=== PATIENT | female | born 1970 | race Caucasian/White ===

== ENCOUNTER 2020-07-26 16:34 | Outpatient (REF) | payer OTHER, SELFPAY | END 2020-07-26 16:35 | disposition home or self-care (01) | LOC: HO.LAB 16:34 | PROVIDERS: PCP Hospitalist; Visit Provider Internal Medicine | DX: Z20.828 Contact with and (suspected) exposure to other viral communicable diseases (principal) | CPT/HCPCS: C9803; U0003 ==

== ENCOUNTER 2020-08-29 07:44 | Outpatient (REF) | payer OTHER, SELFPAY | END 2020-08-29 07:45 | disposition home or self-care (01) | LOC: HO.LAB 07:44 | PROVIDERS: PCP Hospitalist; Visit Provider Internal Medicine | DX: Z20.828 Contact with and (suspected) exposure to other viral communicable diseases (principal) | CPT/HCPCS: C9803; U0003 ==

== ENCOUNTER 2023-03-01 14:24 | Outpatient (REF) | payer OTHER, SELFPAY ==
--- NOTE | ~2023-03-01 | MM_ITS ---
EXAMINATION: BONE DENSITOMETRY CLINICAL INDICATION: Wedge compression fracture of 1st lumbar vertebra, initial. COMPARISON: None (current study represents initial baseline exam). TECHNIQUE: Using a Timeful DXA System (software version: 13.1) manufactured by [employer], dual-energy x-ray absorptiometry was performed of the lumbar spine and left hip. The images are of good technical quality. Summary results are attached. FINDINGS: AP SPINE L1-L4: BMD 1.256 g/cm2, Z-score 0.6, T-score 0.6, normal. LEFT FEMUR, NECK: BMD 0.767 g/cm2, Z-score -1.5, T-score -2.0, osteopenia. LEFT FEMUR, TOTAL: BMD 0.898 g/cm2, Z-score -0.7, T-score -0.9, normal. IDENTIFIED RISK FACTORS: Early menopause, secondary osteoporosis, history of fracture (adult), low calcium intake. HISTORY OF FRACTURE: Spine. MEDICATIONS: Vitamin D. MM/XR DEXA axial skeleton IMPRESSION: 1. DIAGNOSIS: Osteopenia based on the lowest T-score value of -2.0 in the femoral neck applying World Health Organization criteria. 2. 10-YEAR FRACTURE RISK PREDICTION, FRAX: Major osteoporotic fracture (clinical spine, forearm, hip or shoulder) 9.7%. Hip fracture 1.4%. 3. Treatment Recommendations: NOF guidelines recommend consideration for treatment in postmenopausal women and men age 50 and older presenting with the following: -A hip or vertebral (clinical or morphometric) fracture. -T-score less than or equal to -2.5 at the femoral neck or spine after appropriate evaluation to exclude secondary causes. -Low bone mass at the hip or spine and a 10-year fracture probability by FRAX of greater than or equal to 3% for hip fracture or greater than or equal to 20% for major osteoporotic fracture based on the [place] adapted WHO algorithm. 4. Other Recommendations: All treatment decisions require clinical judgment and consideration of individual patient factors, including patient preferences, comorbidities, previous drug use, risk factors not captured in the FRAX model (e.g. frailty, falls, vitamin D deficiency, increased bone turnover, interval significant decline in bone density) and possible under or overestimation of fracture risk by FRAX. Additional medical evaluation for secondary cause of low bone mineral density may be appropriate. FUTURE SCAN RECOMMENDATION: People with diagnosed cases of osteoporosis or at high risk for fracture should have regular bone mineral density tests. For patients eligible for Medicare, routine testing is allowed once every 2 years. The testing frequency can be increased to one year for patients who have rapidly progressing disease, those who are receiving or discontinuing medical therapy to restore bone mass, or have additional risk factors.
== END 2023-03-01 14:25 | disposition home or self-care (01) ==
LOC: HO.MAMMO 14:24
PROVIDERS: PCP Hospitalist; Visit Provider Nurse Practitioner Family
DX: Z13.820 Encounter for screening for osteoporosis (principal); S32.010A Wedge compression fracture of first lumbar vertebra, initial encounter for closed fracture; Z78.0 Asymptomatic menopausal state
CPT/HCPCS: 77080

== ENCOUNTER 2023-04-11 08:09 | Outpatient (AMB) | payer OTHER, SELFPAY ==
--- NOTE | 2023-04-11 08:18 | AM.OFFWIN_ITS ---
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 Patient Tobacco Use Status: Former Tobacco user Allergies No Known Allergies Allergy (Verified 04/11/23 08:22) Do you need a note to return to daycare/school/sports/work: Yes HPI HPI Comments History of Present Illness Details The patient presents to urgent care for evaluation of migraine headache. She states this been going on for about 3 days. It feels similar to prior episodes of migraines however she noticed that she is developing a ringing in her years more so right greater than left. No other associated symptoms. No fever chills nausea vomiting no neck pain or stiffness. Patient has been using ibuprofen 600 mg intermittently. Also using Tylenol. [facility] History History of bilateral breast reduction surgery Hx of abdominoplasty Family History Father COPD (chronic obstructive pulmonary disease) Mother Diabetes Asthma Brother No problems noted. Son In good health Sister In good health Sister In good health Sister In good health Social History Housing: House Alcohol intake: never Patient Tobacco Use Status: Former Tobacco user e-Cigarette/Vaping Use: Never Used Second Hand Smoke Exposure: No service: No Current occupational status: employed Cognitive needs: No Hearing needs: No Vision needs: Yes (glasses) Review of Systems Const Denies increased appetite Card Denies radiating jaw, neck or arm pain and Denies dyspnea Resp Denies hemoptysis and Denies dyspnea Physical Exam Vital Signs: Last Vital Signs Temp 97.2 F 04/11/23 08:22 Pulse 70 04/11/23 08:22 BP 120/80 04/11/23 08:22 Pulse Ox 98 04/11/23 08:22 Oxygen Delivery Method Room Air 04/11/23 08:22 Const General: healthy appearing and no acute distress HEENT Head: Yes normal to inspection Ears: external ears normal and TM's normal bilaterally Mouth: Normal oral and palatal mucosa present Throat: Yes posterior oropharynx normal Eyes Sclerae: sclerae normal Corneas: corneas normal Pupils: Equal, round and reactive pupils present EOM: EOMs intact bilaterally Chest Chest palpation & inspection: normal inspection of the chest Resp Effort & Inspection: normal respiratory effort and able to speak in complete sentences Neuro Cranial nerves: Yes Equal, round and reactive pupils present Assessment & Plan Assessment & Plan (1) Migraine: Code(s): G43.909 - Migraine, unspecified, not intractable, without status migrainosus Plan Migraine headache. Patient reports that she has had benefit with ears in the past will prescribe this. Recommend Medications: New osqkakqfxv-ofsbyhpafrgvd-yjml 50-300-40 mg (Fioricet) 1 cap PO Q8H PRN 14 caps 0RF pain Coding Level of Care Code Est Pt Level 3 (59736) Diagnoses Migraine G43.909
[2023-04-11 08:22] VITALS: BP 120/80; PULSE 70; TEMP 36.2; O2SAT 98
== END 2023-04-11 09:14 | disposition home or self-care (01) ==
PROVIDERS: PCP Hospitalist; Visit Provider Emergency Medicine
DX: G43.909 Migraine, unspecified, not intractable, without status migrainosus (principal)
CPT/HCPCS: 99213

== ENCOUNTER 2023-06-07 13:54 | Outpatient (REF) | payer OTHER, SELFPAY ==
--- NOTE | ~2023-06-07 | MM_ITS ---
EXAMINATION: MM SCREENING DIGITAL BREAST TOMOSYNTHESIS, BILATERAL CLINICAL INFORMATION: Screening. Asymptomatic. The patient has had bilateral breast reduction. COMPARISON: Mammography: This study is compared with prior exams dating back to 2017. TECHNIQUE: Digital breast tomosynthesis is performed in both the craniocaudal and mediolateral oblique views along with computer-aided detection (CAD). Synthesized 2D images are generated from the tomosynthesis. FINDINGS: There are scattered areas of fibroglandular density (ACR BI-RADS breast composition Category b). There are no significant masses, abnormal calcifications, or other abnormalities. Post reduction changes are present. MM/MM tomosynthesis screening BI IMPRESSION: No mammographic evidence of malignancy. ASSESSMENT: BI-RADS BI-RADS 2 - Benign Findings RECOMMENDATION: Routine annual mammography screening. 1 year F/U This examination should not preclude the clinical evaluation of a suspicious palpable abnormality. This patient's information was entered into a reminder system with a target due date for their next mammogram.
== END 2023-06-07 13:55 | disposition home or self-care (01) ==
LOC: HO.MAMMO 13:54
PROVIDERS: PCP Hospitalist; Visit Provider Hospitalist
DX: Z12.31 Encounter for screening mammogram for malignant neoplasm of breast (principal)
CPT/HCPCS: 77063; 77067

== ENCOUNTER → 2023-06-07 14:00 | Outpatient (BNV) | payer OTHER, SELFPAY | PROVIDERS: PCP Hospitalist; Visit Provider Radiology Diagnostic Radiology | DX: Z12.31 Encounter for screening mammogram for malignant neoplasm of breast (principal) | CPT/HCPCS: 77063; 77067 ==

== ENCOUNTER 2023-07-16 08:20 | Outpatient (AMB) | payer OTHER, SELFPAY ==
--- NOTE | 2023-07-16 08:36 | MHC.OFFVIS ---
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 She is doing well with no concerns. Attempting to eat a healthy diet with calcium and vitamin D and stays active with exercise. Currently sexually active. Denies any vaginal dryness or irritation. No menses x 5 yrs. STI testing offered; she declines. Last pap smear; >5yrs. Last mammogram UTD. Cologard is UTD. Denies any family history of breast, ovarian or colon cancer. PFSH Medical History Migraine with aura Asthma Surgical History Hx of section Hx of abdominoplasty History of bilateral breast reduction surgery Family History Father COPD (chronic obstructive pulmonary disease) Mother Diabetes Asthma Brother No problems noted. Son In good health Sister In good health Sister In good health Sister In good health Social History Housing: House Alcohol intake: never Patient Tobacco Use Status: Former Tobacco user e-Cigarette/Vaping Use: Never Used Second Hand Smoke Exposure: No service: No Current occupational status: employed Sexually active: Yes Sexual orientation: Straight/Heterosexual Gender identity: Female Cognitive needs: No Hearing needs: No Vision needs: Yes (glasses) Female Reproductive History Menstrual Age of menopause: 47 Total pregnancies: 1 Full term: 1 Number of Living Children: 1 Date of Mammogram: 06/07/23 (Birad 2) Date of last Bone Density Screenin03/01/23 Review of Systems Const All systems reviewed & are unremarkable except as noted in HPI and below Reports as per HPI Eyes Reports no additional complaints ENT Reports no additional complaints Card Reports no additional complaints Resp Reports no additional complaints GI Reports as per HPI and Reports no additional complaints Reports as per HPI Musc Reports no additional complaints Skin/Breast Reports as per HPI Neuro Reports no additional complaints Psych Reports no additional complaints Endo Reports no additional complaints Jamison/Lymph Reports no additional complaints Aller/Immun Reports no additional complaints Physical Exam Vital Signs: Last Vital Signs BP 110/76 07/16/23 08:37 BMI result Body Mass Index 32.7 Const General: cooperative, healthy appearing, no acute distress, well developed and alert Orientation/consciousness: patient oriented x3 HEENT Head: Yes normal to inspection Eyes General: appearance normal, both eyes and all related structures Neck Neck: Yes normal visual inspection Thyroid: Thyroid normal Chest Other: bilateral breast reconstruction scarring Chest palpation & inspection: normal inspection of the chest and other (no puckering, dimpling, peau de orange, retraction, discharge, masses) Breast/axilla inspection: normal inspection of the breasts Breast/axilla palpation: normal palpation of the breasts Resp Effort & Inspection: normal respiratory effort GI Other: abdominoplasty scarring Inspection: Yes normal to inspection Palpation (GI): Soft to palpation Rectal Exam - Female: deferred General: Yes bladder normal to palpation External Female Exam: normal external appearance and normal appearance of the urethra Speculum Exam - Vagina: normal appearance of the vagina, normal palpation, normal vaginal discharge and vagina atrophic Speculum Exam - Cervix: normal appearance of the cervix, normal palpation and Other cervical findings present (atrophy, bled slight with pap) Bimanual exam- vagina & uterus: normal bimanual exam, normal palpation, uterine size normal, bladder normal to palpation, normal palpation and non-tender Bimanual Exam- Adnexa, other: no masses Skin General skin exam: no rashes or lesions noted Rashes: no rashes Neuro General: patient oriented x3 Cognition (Neuro): normal cognition Extrem General: Yes normal to inspection Psych Attitude: cooperative Thought process: Normal thought process present Assessment & Plan Assessment & Plan (1) Encounter for well woman exam with routine gynecological exam: Code(s): Z01.419 - Encounter for gynecological examination (general) (routine) without abnormal findings Plan: Discussed: Current recommendations for pap smears per ASCCP guidelines. Breast awareness, periodic self breast exams and yearly mammogram. Maintain a healthy lifestyle, well balanced diet including Calcium 1,200 mg and Vitamin D 600 IU daily, and routine exercise. Contact the office with any postmenopausal bleeding. Replens and lubricants if needed. Sign up for the patient portal if not already enrolled. All of her questions and concerns were addressed to the best of my ability. RTO in 1 year for annual air purifier servicer exam. Orders: Orders MM tomosynthesis screening BI Today Z12.31 - Encounter for screening mammogram for malignant neoplasm of breast Coding Level of Care Code New Pt Prev Care 40-64y(70905) Diagnoses Encounter for well woman exam with routine gynecological exam Z01.419
[2023-07-16 08:37] VITALS: BP 110/76; BMI 32.7
== END 2023-07-16 09:24 | disposition home or self-care (01) ==
PROVIDERS: PCP Hospitalist; Visit Provider Advanced Practice Midwife
DX: Z01.419 Encounter for gynecological examination (general) (routine) without abnormal findings (principal)
CPT/HCPCS: 99386

== ENCOUNTER 2023-07-16 08:20 | Outpatient (REF) | payer OTHER, SELFPAY ==
[2023-07-19 06:23] LABS: HPV mRNA E6/E7 rflx Not Detected (Not Detected)
== END 2023-07-16 08:21 | disposition home or self-care (01) ==
LOC: HO.LNP 08:20
PROVIDERS: PCP Hospitalist; Visit Provider Advanced Practice Midwife
DX: Z01.419 Encounter for gynecological examination (general) (routine) without abnormal findings (principal); Z11.51 Encounter for screening for human papillomavirus (HPV)
CPT/HCPCS: 87624; 88142

== ENCOUNTER 2023-08-02 12:55 | Outpatient (AMB) | payer OTHER, SELFPAY ==
--- NOTE | 2023-08-02 12:56 | A.OFFPC_ITS ---
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 Required: No Chief Service Observer: Not Required per policy Accompanied by: Self / Same As Patient Allergies No Known Allergies Allergy (Verified 08/02/23 13:11) Medication List - Last Reconciled 08/02/23 by HARRY Turner albuterol sulfate 90 mcg/actuation 1 puff inhalation QID PRN ofniwdprvq-bgntrvkaangut-xogr 50-300-40 mg (Fioricet) 1 cap PO Q8H PRN ibuprofen 600 mg PO Q8H 1 month triamcinolone acetonide 0.5% 1 appl topical DAILY Tobacco use date assessed: 08/02/23 Dental Screening Dental Screen Date: 08/02/23 Did you have a dental visit in the last 12 months?: Yes Did you have a dental problem in the last 6 months where you did not have access to dental care?: No Was dental information given to patient?: Patient has dentist HPI HPI Comments 2 History of Present Illness0 Details 52-year-old female past medical history significant for osteopenia, migraine an asthma. Patient presents today as a transfer care from [facility] for physical exam. Patient reports she has not required inhaler in some time she typically requires in the summer when it is humid. Patient denies any chest pain, palpitations, shortness of breath and syncope. Patient brought in work form for immunizations will order titers for MMR, varicella, hepatitis-B patient requesting to have a urine tox screen completed as requested by her work, T spot blood work ordered. Tdap current given in 2011. Patient declined flu shot. Once titers resulted paperwork will be completed and patient will be notified. Patient has corn on left 4th toe requesting to see podiatry for this, referral entered. eye exam: Up-to-date. Patient had Cologuard screening completed 1 month ago which was negative. Mammogram: May 2023, negative patient is status post fall suffered compression fracture,BMD completed showed Osteopenia February 2023. Patient continues on vitamin-D supplements. Vitamin-D level ordered. Obgyn: Patient currently following with Ciara Kaba for well-woman exam. [facility] Medical History (Updated 08/02/23 @ 13:14 by HARRY Turner) Impetigo Migraine with aura Asthma Surgical History Hx of section Hx of abdominoplasty History of bilateral breast reduction surgery Family History (Updated 08/02/23 @ 13:09 by HARRY Turner) Father COPD (chronic obstructive pulmonary disease) Mother Diabetes Asthma Brother Substance use disorder Cardiomyopathy Son In good health Sister In good health Sister In good health Sister In good health Social History (Updated 08/02/23 @ 13:10 by HARRY Turner) Housing: House Alcohol intake: never Patient Tobacco Use Status: Former Tobacco user Quit Date: 2000 e-Cigarette/Vaping Use: Never Used Second Hand Smoke Exposure: No service: No Current occupational status: employed Sexual orientation: Straight/Heterosexual Gender identity: Female Cognitive needs: No Hearing needs: No Vision needs: Yes (glasses) Questionnaire PHQ-9 Over the last 2 weeks, how often have you been bothered by any of the following problems? 1. Little interest or pleasure in doing things: not at all 2. Feeling down, depressed, or hopeless: not at all 3. Trouble falling or staying asleep, or sleeping too much: not at all 4. Feeling tired or having little energy: not at all 5. Poor appetite or overeating: not at all 6. Feeling bad about yourself - or that you are a failure or have let yourself or your family down: not at all 7. Trouble concentrating on things, such as reading the newspaper or watching television: not at all 8. Moving or speaking so slowly that other people could have noticed. Or the opposite - being so fidgety or restless that you have been moving around a lot more than usual: not at all 9. Thoughts that you would be better off or of hurting yourself in some way: not at all Total score: 0 Depression Screening Interpretation: Negative Depression Screening Done: Yes 83954 - PHQ-9 Billing: Yes Source: Developed by Drs. Rey Andrews, Lauren Hurd, Jonathon Romano and colleagues, with an educational katie from [employer]. Thrive Questionnaire Date Thrive assessed: 08/02/23 I am a: Patient What is your living situation today?: I have a steady place to live Within the past 12 months, did the food you bought not last and you didn't have the money to get more?: Never true Within the past 12 months, did you worry whether your food would run out before you got money to buy more?: Never true Do you have trouble paying for medicines?: No Do you have trouble getting transportation to medical appointments?: No Do you have trouble paying your heating and electricity bill?: No Do you have trouble taking care of your child, family member or friend?: No Do you have trouble with day-to-day activities such as bathing, preparing meals, shopping, managing finances, etc.?: No Are you currently unemployed and looking for a job?: No Are you interested in more education?: No Currently or been in a relationship where the following occur: no concerns reported AUDIT C Alcohol Use Questionnaire (AUDIT-C) 1. How often do you have a drink containing alcohol?: Never Total Score: 0 BRENNEN-7 AMB Questionnaire BRENNEN-7 Date BRENNEN - 7 assessed: 08/02/23 Feeling nervous, anxious, or on edge: 0 = Not at all Not being able to stop or control worryin = Not at all Worrying too much about different things: 0 = Not at all Trouble relaxin = Not at all Being so restless that it is hard to sit still: 0 = Not at all Becoming easily annoyed or irritable: 0 = Not at all Feeling afraid as if something awful might happen: 0 = Not at all Total BRENNEN-7 score (0-4 normal; 5-9 mild; 10-14 moderate; 15-21 severe): 0 Source: Developed by Drs. Rey Andrews, Jonathon Appiah and colleagues, with an educational katie from [employer]. BRENNEN-7 Assessment Billing BRENNEN-7 Assessment Tool: BRENNEN-7 Assessment 79432 Review of Systems Const Denies chills, Denies fatigue, Denies fever(s) and Denies poor appetite Eyes Denies no additional complaints ENT Reports Normal hearing present Card Denies chest pain, Denies syncope, Denies rapid heart rate and Denies dyspnea Resp Denies cough and Denies dyspnea GI Denies change in stool character, Denies constipation, Denies diarrhea, Denies nausea and Denies vomiting Denies urinary frequency, Denies dysuria and Denies urinary urgency Neuro Reports Normal hearing present, Denies confusion and Denies syncope Psych Denies confusion Endo Denies fatigue Physical exam (Primary Care) Vital Signs: Last Vital Signs Pulse 81 08/02/23 12:58 BP 114/68 08/02/23 12:58 Pulse Ox 98 08/02/23 12:58 Oxygen Delivery Method Room Air 08/02/23 12:58 BMI result Body Mass Index 33.2 Tobacco/Smoking Status: Tobacco use Status Tobacco use date assessed 08/02/23 08/02/23 13:04 Patient Tobacco Use Status Former Tobacco user 08/02/23 13:10 e-Cigarette/Vaping Use Never Used 08/02/23 13:10 PHQ-9: PHQ-9 Score PHQ-9: Total score 0 08/02/23 13:33 Depression Screening Interpretation: Negative Thrive Assessment: Date of Thrive Assessment Date Thrive assessed 08/02/23 08/02/23 13:04 Currently or been in a relationship where the following occur: no concerns reported Const General: No confusion Orientation/consciousness: No confusion HENMT Head: Yes normocephalic and Yes atraumatic Ears: external ears normal and TM's normal bilaterally General nose exam: Normal external nose present and Normal nasal mucous membranes and turbinates present Face and sinus: Yes normal facial exam and Yes sinuses nontender Mouth: moist mucous membranes Throat: Yes tonsils normal Eyes Conjunctivae: conjunctivae normal Sclerae: sclerae normal Pupils: Equal, round and reactive pupils present and Pupils normal by confrontation EOM: EOMs intact bilaterally Direct Ophthalmoscopy: normal light reflex Neck Neck: Yes no lymphadenopathy and Yes supple Thyroid: Thyroid normal Chest Chest palpation & inspection: normal inspection of the chest Resp Effort & Inspection: normal respiratory effort Auscultation: clear to auscultation bilaterally, no crackles, no rhonchi and no wheezes Cardio Rate: regular rate Rhythm: regular rhythm Peripheral pulses: radial pulses present and dorsalis pedis present GI Inspection: Yes normal to inspection Palpation (GI): Soft to palpation, nontender and No hepatosplenomegaly present Auscultation: normoactive bowel sounds Skin General skin exam: no rashes or lesions noted Neuro General: No confusion Cranial nerves: Yes Equal, round and reactive pupils present and Yes Normal hearing present Cognition (Neuro): normal cognition Gait exam (Neuro): Normal gait present Motor exam (neuro): 5/5 motor strength present throughout Deep tendon reflexes (DTR's): Right brachioradialis reflex intensity grade: 2+, Left brachioradialis reflex intensity grade: 2+, Right patellar reflex intensity grade: 2+ and Left patellar reflex intensity grade: 2+ Extrem General: No edema Ankle/foot/toe images: 2 1. [place] noted to medial side of 5th toe. Assessment and Plan Assessment & Plan (1) [place] of toe: Code(s): L84 - Corns and callosities Plan: Referral entered to podiatry as requested by patient. (2) Osteopenia: Code(s): M85.80 - Other specified disorders of bone density and structure, unspecified site Plan: Continue on vitamin-D supplements. Recommended follow-up on bone density screening in 2-3 years. (3) Well adult exam: Code(s): Z00.00 - Encounter for general adult medical examination without abnormal findings Plan: Follow-up in 1 year. Once titers completed will complete, patient employee health record for med patient will be notified. Plan Follow in 1 year or sooner if needed. Orders: Orders 2 Varicella IgG Antibody Today Z01.84 - Encounter for antibody response examination Comprehensive Ethel. Panel Fast Today Z13.1 - Encounter for screening for diabetes mellitus TSH reflex Free T4 Today Z13.29 - Encounter for screening for other suspected endocrine disorder Vitamin D 25-OH Total Today M85.80 - Other specified disorders of bone density and structure, unspecified site Drug Screen Urine Today Z02.83 - Encounter for blood-alcohol and blood-drug test T Spot TB Today Z01.84 - Encounter for antibody response examination Mumps Virus IgG Antibody Today Z01.84 - Encounter for antibody response examination Rubella IgG Antibody Today Z01.84 - Encounter for antibody response examination Rubeola IgG (Measles) Today Z01.84 - Encounter for antibody response examination Hepatitis B Surface Antibody Today Z01.84 - Encounter for antibody response examination Complete Blood Count Auto Diff Today Z13.0 - Encounter for screening for diseases of the blood and blood-forming organs and certain disorders involving the immune mechanism Lipid Panel Today Z13.220 - Encounter for screening for lipoid disorders Referrals 2 Podiatry Referral L84 - Corns and callosities Medications: Refilled 2 jnjnhhlepl-bbghbwmradcvf-bhdf 50-300-40 mg (Fioricet) 1 cap PO Q8H PRN 14 caps 0RF pain Coding Level of Care Code Est Pt Prev Care 40-64y(32474) Diagnoses [place] of toe L84 Osteopenia M85.80 Well adult exam Z00.00 Additional Codes BRENNEN-7 Assessment Billing - BRENNEN-7 Assessment Tool: BRENNEN-7 Assessment 25053 ([id number])
[2023-08-02 12:58] VITALS: BP 114/68; PULSE 81; O2SAT 98; BMI 33.2
== END 2023-08-02 13:29 | disposition home or self-care (01) ==
PROVIDERS: PCP Hospitalist; Visit Provider Nurse Practitioner Family
DX: L84 Corns and callosities (principal); M85.80 Other specified disorders of bone density and structure, unspecified site; Z00.00 Encounter for general adult medical examination without abnormal findings
CPT/HCPCS: 99396

== ENCOUNTER 2023-12-26 08:05 | Outpatient (AMB) | payer OTHER, SELFPAY ==
[2023-12-26 08:23] VITALS: BP 118/70; PULSE 97; TEMP 36.6; O2SAT 98; BMI 32.0
--- NOTE | 2023-12-26 08:23 | AM.OFFWIN_ITS ---
Intake Vital Signs 12/26/23 08:23 Height 5 ft 2 in Weight 175 lb BMI 32.0 BP 118/70 Blood Pressure Location Rt brachial Position Sitting Pulse 97 Pulse Source Pulse Oximeter Temp 97.9 F Temp Source Oral Pulse Oximetry (%) 98 Oxygen Delivery Method Room Air Intake Visit Reasons: EP sinus infection Intake Note: pt is here for co possible sinus infection with congestion gooing on for 2 weeks Patient Tobacco Use Status: Former Tobacco user Quit Date: 2000 Allergies No Known Allergies Allergy (Verified 12/26/23 08:23) Do you need a note to return to daycare/school/sports/work: Yes HPI EP sinus infection HPI Details This is a 53 year old female patient who presents today for a 2+ week history of upper respiratory congestion, dry cough, sinus/facial pressure. Denies fever or GI symptoms. She has been using otc Dayquil/Nyquil and other cold/flu products without benefit. Motrin helps somewhat for the head pressure. [facility] Medical History Impetigo Migraine with aura Asthma Surgical History Hx of section Hx of abdominoplasty History of bilateral breast reduction surgery Family History Father COPD (chronic obstructive pulmonary disease) Mother Diabetes Asthma Brother Substance use disorder Cardiomyopathy Son In good health Sister In good health Sister In good health Sister In good health Social History Housing: House Alcohol intake: never Patient Tobacco Use Status: Former Tobacco user Quit Date: 2000 e-Cigarette/Vaping Use: Never Used Second Hand Smoke Exposure: No service: No Current occupational status: employed Sexual orientation: Straight/Heterosexual Gender identity: Female Cognitive needs: No Hearing needs: No Vision needs: Yes (glasses) Review of Systems Const All systems reviewed & are unremarkable except as noted in HPI and below Physical Exam Vital Signs: Last Vital Signs Temp 97.9 F 12/26/23 08:23 Pulse 97 12/26/23 08:23 BP 118/70 12/26/23 08:23 Pulse Ox 98 12/26/23 08:23 Oxygen Delivery Method Room Air 12/26/23 08:23 BMI result Body Mass Index 32.0 Const General: cooperative and no acute distress HEENT Head: Yes normal to inspection Ears: hearing grossly normal bilaterally General nose exam: Normal external nose present Face and sinus: Yes sinus tenderness Mouth: Normal oral and palatal mucosa present Throat: Yes posterior oropharynx abnormal (mild erythema) Neck Neck: Yes no lymphadenopathy Resp Effort & Inspection: normal respiratory effort Auscultation: clear to auscultation bilaterally Cardio Rate: regular rate Rhythm: regular rhythm Skin General skin exam: no rashes or lesions noted Extrem General: Yes capillary refill normal and Yes no clubbing, cyanosis or edema Psych Appearance: grossly normal Mental Status: mental status grossly normal Speech and movement: Normal speech and movement present Assessment & Plan Assessment & Plan (1) Upper respiratory infection: Code(s): J06.9 - Acute upper respiratory infection, unspecified Qualifiers: URI type: unspecified URI Qualified Code(s): J06.9 - Acute upper respiratory infection, unspecified Plan: Will start on abx as 2+ week otc treatment has not provided any benefit. Reviewed indications, use, possible s/e of medication. Advised to continue conservative measures with hydration, healthy food/vitamin intake, otc cold/flu products as needed for symptom management. If she does not improve with treatment she can return to the clinic for further evaluation. She agrees to plan. Medications: New azithromycin For 250 mg dose pack: take 500 mg today (day 1), then 250 mg for 4 days (days 2-5) PO 6 tabs 0RF J06.9 - Acute upper respiratory infection, unspecified Coding Level of Care Code Est Pt Level 4 (56264) Diagnoses Upper respiratory tract infection, unspecified type J06.9 URI type: unspecified URI
== END 2023-12-26 08:52 | disposition home or self-care (01) ==
PROVIDERS: PCP Hospitalist; Visit Provider Nurse Practitioner Family
DX: J06.9 Acute upper respiratory infection, unspecified (principal)
CPT/HCPCS: 99214

== ENCOUNTER 2024-03-27 06:28 | Outpatient (REF) | payer OTHER, SELFPAY ==
[2024-03-27 07:12] LABS: Estimated Average Glucose 123 mg/dL; Hemoglobin A1c % 5.9 % (<6.0)
[2024-03-27 07:30] LABS: Alanine Aminotransferase 18 U/L (0-31); Albumin Level 4.3 g/dL (3.5-5.0); Alkaline Phosphatase 77 U/L (39-117); Anion Gap 10 (12-20); Aspartate Amino Transferase 16 U/L (5-31); Bilirubin Total 0.5 mg/dL (0.0-1.0); Blood Urea Nitrogen 22 mg/dL (9-16); Calcium 10.2 mg/dL (8.4-10.2); Carbon Dioxide 30 mmol/L (22-29); Chloride 104 mmol/L (96-108); Cholesterol 231 mg/dL (<200); Estimated Glomerular Filt Rate > 60; Glucose Fasting 118 mg/dL (60-99); HDL Cholesterol 64 mg/dL (>40); LDL Cholesterol Calculated 149 mg/dL (<100); Potassium 4.4 mmol/L (3.3-5.1); Sodium 140 mmol/L (135-145); Total Protein 7.5 g/dL (6.5-8.0); Triglycerides 90 mg/dL (<150)
[2024-03-27 07:46] LABS: TSH reflex Free T4 2.34 uIU/mL (0.32-4.0)
[2024-03-27 08:23] LABS: Creatinine Urine 55.84 mg/dL; Microalbumin Urine < 5.0 mg/L
== END 2024-03-27 06:29 | disposition home or self-care (01) ==
LOC: HO.LAB 06:28
PROVIDERS: PCP Nurse Practitioner Family; Visit Provider Nurse Practitioner Family
DX: Z00.00 Encounter for general adult medical examination without abnormal findings (principal); Z13.6 Encounter for screening for cardiovascular disorders; Z13.1 Encounter for screening for diabetes mellitus
CPT/HCPCS: 36415; 80053; 80061; 82043; 82570; 83036; 84443

== ENCOUNTER 2024-04-09 07:57 | Outpatient (AMB) | payer OTHER, SELFPAY ==
--- NOTE | 2024-04-09 08:00 | MHC.PC.OV ---
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 Surveillance Investigator Required: No Is last menstrual period known: No Post menopausal: No Patient : No Allergies No Known Allergies Allergy (Verified 04/09/24 08:17) Medication List - Last Reconciled 04/09/24 by Anika Flores, COUPON REDEMPTION CLERK-BC albuterol sulfate 90 mcg/actuation 1 puff inhalation QID PRN arbfxaccky-inhihkouoixml-gtlr 50-300-40 mg (Fioricet) 1 cap PO Q8H PRN ibuprofen 600 mg PO Q8H 1 month triamcinolone acetonide 0.5% 1 appl topical DAILY Tobacco use date assessed: 04/09/24 Dental Screening Dental Screen Date: 04/09/24 Did you have a dental visit in the last 12 months?: Yes Did you have a dental problem in the last 6 months where you did not have access to dental care?: No Was dental information given to patient?: Patient has dentist HPI HPI Comments History of Present Illness Details 53-year-old female with osteopenia, migraine, asthma, compression fracture L1 vertebrae, impaired fasting glucose, hyperlipidemia, obesity Status post , abdominoplasty, bilat breast reduction surgery Social: , 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 Colon Cologuard 07/05/2023 negative ? Mammo May 2023 ? DEXA 03/05/2023, repeat 2024 ? PAP 07/16/2023 ? Tdap 2011, will update today Specialists: Podiatry - cleared plastic finisher Dermatology > no longer active Optho - glasses, exam about 1 year ago. Here today to est care & for CPE Old medical records reviewed Right elbow tendonitis, did acupuncture + relief however it is not fully resolved. Wonders about cortisone shot. Right handed. Eczema - on hands and AC, not active w/ Derm. Well managed with topical triamcinolone, using sparingly. Migraines + aura, also gets headaches as well. Abortive with Fiorecet using sparingly. Only has these migraines about 2 times per year, lasts a few days. Not active with Neuro. Asthma - well controlled w/ prn GEOVANNY only. Using prophylactically, like before exercise and when humid. Uses a few times per week as such. Very rare breathing feels hindered. Compression fracture resolved w PT and rest, was active w/ Ortho, no further fu indicated for this. Osteopenia - taking Ca+D and bone supplement OTC Hard time falling asleep, feels high strung. Occasional APAP PM. + Sleep hygeine. Melatonin keeps her awake. Getting around 7 hours. Never wakes feel. Reviewed the following today: Labs from 03/27/2024 show normal electrolytes, normal renal function, elevated fasting glucose 118, hemoglobin A1c 5.9%, normal LFTs, elevated total cholesterol 231, LDL 149, HDL 64, triglycerides 90, TSH normal, urine microalbumin creatinine ratio normal General: Well developed, well nourished, in no acute distress. Appears stated age. Head: Normocephalic, atraumatic. Eyes: Pupils are equal, round and reactive to light and accommodation. Conjunctivae are clear. Vision grossly normal. Ears: TMs clear AU, EACS WNL Nose: Patent, without discharge. Mouth: There are no ulcers or lesions noted. No inflammation, no post nasal drip, no plaques nor exudates. Neck: Supple, no adenopathy or thyromegaly. Lungs: Clear to auscultation bilaterally. No rales, rhonchi or wheeze noted. Good air flow in all nash. Heart: Regular rate and rhythm. No murmurs, click, rubs or gallops are noted. Abdomen: Bowel sounds present in all quadrants. The abdomen is soft, nontender, with no masses or organomegaly noted. No hernias are noted. Musculoskeletal: Joints are nontender, without swelling, redness, or effusions. Range of motion is observed to be normal. Pain w palp and ROM over lateral epicondyle on R Pulses: Peripheral pulses are equal and palpable bilaterally. Extremities: No clubbing, cyanosis nor edema is noted. Neurologic: Gait and station normal. Cranial Nerves 2-12 intact. Motor strength grossly symmetrical and intact. No sensory loss. Balance normal. Skin: No rashes, ulcers, or lesions noted. Turgor is good. Skin color is good. Hair and nails are without abnormalities. Psych: Normal eye contact, affect and mood appropriate, and normal interactions. Patient is alert and appropriate to context. Plan: Tdap today Refill of all meds; cont w/o change Refer to [facility] ortho for R elbow tendonitis Lifestyle for IFG and Lipids, repeat labs in 6 months with an office visit. Discussed sleep study today, let me know if interested, this is to eval waking feeling tired. RTO sooner if needed. [facility] Medical History (Updated 04/09/24 @ 10:04 by HARRY Vieira-) Skin lesion Achilles tendinitis of right lower extremity [place] of toe Impetigo Migraine with aura Asthma Surgical History Hx of section Hx of abdominoplasty History of bilateral breast reduction surgery Family History (Updated 04/09/24 @ 08:06 by Noy Barth) Father COPD (chronic obstructive pulmonary disease) Alcohol abuse Mother Diabetes Asthma Brother Substance use disorder Cardiomyopathy Alcohol abuse Son In good health Sister In good health Sister In good health Sister In good health Social History Housing: House Alcohol intake: never Patient Tobacco Use Status: Former Tobacco user e-Cigarette/Vaping Use: Never Used Second Hand Smoke Exposure: No service: No Current occupational status: employed Current occupational exposures/hazards: No Sexual orientation: Straight/Heterosexual Gender identity: Female Cognitive needs: No Hearing needs: No Vision needs: Yes (glasses) Questionnaire PHQ-9 Over the last 2 weeks, how often have you been bothered by any of the following problems? 1. Little interest or pleasure in doing things: not at all 2. Feeling down, depressed, or hopeless: not at all 3. Trouble falling or staying asleep, or sleeping too much: several days 4. Feeling tired or having little energy: not at all 5. Poor appetite or overeating: not at all 6. Feeling bad about yourself - or that you are a failure or have let yourself or your family down: not at all 7. Trouble concentrating on things, such as reading the newspaper or watching television: not at all 8. Moving or speaking so slowly that other people could have noticed. Or the opposite - being so fidgety or restless that you have been moving around a lot more than usual: not at all 9. Thoughts that you would be better off or of hurting yourself in some way: not at all Total score: 1 Depression Screening Interpretation: Negative Depression Screening Done: Yes 45202 - PHQ-9 Billing: Yes Source: Developed by Drs. Rey Andrews, Lauren Hurd, Jonathon Romano and colleagues, with an educational katie from [employer]. Thrive Questionnaire Date Thrive assessed: 08/02/23 AUDIT C Alcohol Use Questionnaire (AUDIT-C) 1. How often do you have a drink containing alcohol?: Monthly or less (once a year) 2. How many drinks containing alcohol do you have on a typical day when you are drinking?: 1 or 2 3. How often do you have six or more drinks on one occasion?: Never Total Score: 1 Score Reviewed/Action Taken: Yes BRENNEN-7 AMB Questionnaire BRENNEN-7 Date BRENNEN - 7 assessed: 04/09/24 Feeling nervous, anxious, or on edge: 1 = Several days Not being able to stop or control worryin = Not at all Worrying too much about different things: 0 = Not at all Trouble relaxin = Several days Being so restless that it is hard to sit still: 0 = Not at all Becoming easily annoyed or irritable: 0 = Not at all Feeling afraid as if something awful might happen: 0 = Not at all Total BRENNEN-7 score (0-4 normal; 5-9 mild; 10-14 moderate; 15-21 severe): 2 Source: Developed by Drs. Rey Andrews, Lauren Hurd, Jonathon Romano and colleagues, with an educational katie from [employer]. BRENNEN-7 Assessment Billing BRENNEN-7 Assessment Tool: BRENNEN-7 Assessment 59159 ACT Questionnaire In the past 4 weeks, how much of the time did your asthma keep you from getting as much done at work, school or at home?: All of the time During the past 4 weeks, how often have you had shortness of breath?: 1-2 times a week During the past 4 weeks, how often did your asthma symptoms wake you up at night or earlier than usual in the morning?: Not at all During the past 4 weeks, how often have you had to use your rescue inhaler or nebulizer medication?: 2-3 times a week How would you rate your asthma control during the past 4 weeks?: Completely controlled ACT Interpretation: Negative Score: 18 Physical exam (Primary Care) Vital Signs: Last Vital Signs Temp 98.1 F 04/09/24 08:10 Pulse 86 04/09/24 08:10 Resp 16 04/09/24 08:10 BP 108/74 04/09/24 08:10 Pulse Ox 96 04/09/24 08:10 Oxygen Delivery Method Room Air 04/09/24 08:10 BMI result Body Mass Index 35.0 BMI Assessment/Plan discussion: High BMI High, discussed plan: lifestyle Tobacco/Smoking Status: Tobacco use Status Tobacco use date assessed 04/09/24 04/09/24 08:13 Patient Tobacco Use Status Former Tobacco user 04/09/24 08:00 e-Cigarette/Vaping Use Never Used 04/09/24 08:00 PHQ-9: PHQ-9 Score PHQ-9: Total score 1 04/09/24 09:00 Depression Screening Interpretation: Negative Thrive Assessment: Date of Thrive Assessment Date Thrive assessed 08/02/23 04/09/24 08:00 Immunizations Boostrix Tdap 2.5 Lf unit-8 mcg-5 Lf/0.5 mL intramuscular syringe Performing Provider: SONJA Vieira Performing Location: [facility] Family Medicine Administered by: Diane Dunham RN on 04/09/24 09:02 Dose Route Admin Location Dispensed Lot Number Expiration Date NDC Early Morning 0.5 mL IM Left Deltoid 0.5 mL [id number] 04/24/26 [id number] Sealed VIS Given Date VIS Provided VIS Publication Date 04/09/24 Single Vaccine 21 Eligibility Eligibility Date Funding Source Not [facility] Eligible 04/09/24 Private Assessment and Plan Assessment & Plan (1) Encounter for general adult medical examination without abnormal findings: Code(s): Z00.00 - Encounter for general adult medical examination without abnormal findings (2) Severe obesity (BMI 35.0-35.9 with comorbidity): Comment: HLD and IFG Code(s): E66.01 - Morbid (severe) obesity due to excess calories; Z68.35 - Body mass index [BMI] 35.0-35.9, adult (3) Right elbow tendonitis: Code(s): M77.8 - Other enthesopathies, not elsewhere classified (4) IFG (impaired fasting glucose): Code(s): R73.01 - Impaired fasting glucose (5) Hyperlipidemia: Code(s): E78.5 - Hyperlipidemia, unspecified Qualifiers: Hyperlipidemia type: mixed hyperlipidemia Qualified Code(s): E78.2 - Mixed hyperlipidemia (6) Mild intermittent asthma in adult without complication: Code(s): J45.20 - Mild intermittent asthma, uncomplicated (7) Migraine with aura: Code(s): G43.109 - Migraine with aura, not intractable, without status migrainosus Qualifiers: Status migrainosus presence: without status migrainosus Intractability: not intractable Qualified Code(s): G43.109 - Migraine with aura, not intractable, without status migrainosus (8) Osteopenia: Code(s): M85.80 - Other specified disorders of bone density and structure, unspecified site Qualifiers: Osteopenia location: unspecified Qualified Code(s): M85.80 - Other specified disorders of bone density and structure, unspecified site (9) Compression fracture of L1 lumbar vertebra: Comment: resolved Code(s): S32.010A - Wedge compression fracture of first lumbar vertebra, initial encounter for closed fracture Qualifiers: Encounter type: sequela Qualified Code(s): S32.010S - Wedge compression fracture of first lumbar vertebra, sequela Orders: Orders Lipid Panel 08/16/24 E78.5 - Hyperlipidemia, unspecified, R73.01 - Impaired fasting glucose Hemoglobin A1c 08/16/24 E78.5 - Hyperlipidemia, unspecified, R73.01 - Impaired fasting glucose TDaP Immunization Today Z23 - Encounter for immunization Comprehensive [place]. Panel Fast 08/16/24 E78.5 - Hyperlipidemia, unspecified, R73.01 - Impaired fasting glucose Referrals Orthopedics Referral M77.8 - Other enthesopathies, not elsewhere classified Medications: Refilled triamcinolone acetonide 0.5% 1 appl topical DAILY 15 grams 3RF absanqmkrh-xdocucnpywjve-buqs 50-300-40 mg (Fioricet) 1 cap PO Q8H PRN 14 caps 0RF pain Discontinued ibuprofen Discontinued Reason: Patient Completed Course 600 mg PO Q8H 1 month 90 tabs 0RF pain M76.61 - Achilles tendinitis, right leg Patient Instructions: Health screenings for women You should visit your health care provider from time to time, even if you are healthy. The purpose of these visits is to: Screen for medical issues Assess your risk for future medical problems Encourage a healthy lifestyle Update vaccinations and other preventive care services Help you get to know your provider in case of an illness Information Even if you feel fine, you should still see your provider for regular checkups. These visits can help you avoid problems in the future. For example, the only way to find out if you have high blood pressure is to have it checked regularly. High blood sugar and high cholesterol levels also may not have any symptoms in the early stages. A simple blood test can check for these conditions. There are specific times when you should see your provider or receive specific health screenings. The [place] Preventive Services Task Force publishes a list of recommended screenings. Below are screening guidelines for women ages 18 to 39. BLOOD PRESSURE SCREENING Your blood pressure should be checked at least once every 3 to 5 years if: Your blood pressure is in the normal range (top number less than 120 mm Hg and bottom number less than 80 mm Hg) You don't have risk factors for high blood pressure Ask your provider if you need your blood pressure checked more often if: The top number is 120 to 129 mm Hg or the bottom number is 70 to 79 mm Hg You have diabetes, heart disease, kidney problems, are overweight, or have certain other health conditions You have a first-degree relative with high blood pressure You are Black You had high blood pressure during a If the top number is 130 mm Hg or greater or the bottom number is 80 mm Hg or greater, this is considered stage 1 hypertension. Schedule an appointment with your provider to learn how you can reduce your blood pressure. Watch for blood pressure screenings in your area. Ask your provider if you can stop in to have your blood pressure checked. BREAST CANCER SCREENING Experts do not agree about the benefits of breast self-exams in finding breast cancer or saving lives. Talk to your provider about what is best for you. A screening mammogram is not recommended for most women under age 40. Your provider may discuss and recommend mammograms, MRI scans, or ultrasounds if you have an increased risk for breast cancer, such as: A mother or sister who had breast cancer at a young age (most often starting screening earlier than the age the close relative was diagnosed) You carry a high-risk genetic marker CERVICAL CANCER SCREENING Cervical cancer screening should start at age 21 years unless your provider advises otherwise. After the first test: Women ages 21 through 29 should have a Pap test every 3 years. Exoprts do not agree on whether HPV testing is recommended for this age group. Women ages 30 through 65 should be screened with either a Pap test every 3 years or the HPV test every 5 years or both tests every 5 years (called cotesting ). Women who have been treated for precancer (cervical dysplasia) should continue to have Pap tests for 20 years after treatment or until age 65, whichever is longer. If you have had your uterus and cervix removed (total hysterectomy), and you have not been diagnosed with cervical cancer or precancer (high grade cervical neoplasia), you do not need cervical cancer screening. CHOLESTEROL SCREENING Cholesterol screening should begin at: Age 45 for women with no known risk factors for coronary heart disease Age 20 for women with known risk factors for coronary heart disease Repeat cholesterol screening should take place: Every 5 years for women with normal cholesterol levels More often if changes occur in lifestyle (including weight gain and diet) More often if you have diabetes, heart disease, kidney problems, or certain other conditions DIABETES SCREENING You should be screened for diabetes starting at age 35 and then repeated every 3 years if you have no risk factors for diabetes. Screening may need to start earlier and be repeated more often if you have other risk factors for diabetes, such as: You have a first degree relative with diabetes. You are overweight or have obesity. You have high blood pressure, prediabetes, or a history of heart disease. Screening for diabetes should be done if you are planning to become and you are overweight and have other risk factors such as high blood pressure. DENTAL EXAM Go to the dentist once or twice every year for an exam and cleaning. Your dentist will evaluate if you need more frequent visits. EYE EXAM Have an eye exam every 5 to 10 years before age 40. If you have vision problems, have an eye exam every 2 years or more often if recommended by your provider. You should have an eye exam that includes an examination of your retina (back of your eye) at least every year if you have diabetes. IMMUNIZATIONS Commonly needed vaccines include: Flu shot: get one every year. COVID-19 vaccine: ask your provider what is best for you. Tetanus-diphtheria and acellular pertussis (Tdap) vaccine: have one at or after age 19 as one of your tetanus-diphtheria vaccines if you did not receive it as an adolescent. Tetanus-diphtheria: have a booster (or Tdap) every 10 years. Varicella vaccine: receive 2 doses if you never had chickenpox or the varicella vaccine. Hepatitis B vaccine: receive 2, 3, or 4 doses, depending on your exact circumstances. Measles, mumps, and rubella (MMR) vaccine: receive 1 to 2 doses if you are not already immune to MMR. Your provider can tell you if you are immune. Ask your provider about the human papillomavirus (HPV) vaccine if: You have not received the HPV vaccine in the past You have not completed the full vaccine series (you should catch up on this shot) Ask your provider if you should receive other immunizations if you have certain health problems that increase your risk for some diseases such as pneumonia. INFECTIOUS DISEASE SCREENING Women who are sexually active should be screened for chlamydia and gonorrhea up until age 25. Women 25 years and older should be screened for chlamydia and gonorrhea if at high risk. Screening for hepatitis C: All adults ages 18 to 79 should get a one-time test for hepatitis C. people should be screened at every . Screening for human immunodeficiency virus (HIV): All people ages 15 to 65 should get a one-time test for HIV. Depending on your lifestyle and medical history, you may also need to be screened for infections such as syphilis and HIV, as well as other infections. PHYSICAL EXAM All adults should visit their provider from time to time, even if they are healthy. The purpose of these visits is to: Screen for disease Assess your risk of future medical problems Encourage a healthy lifestyle Update your vaccinations and other preventive care services Maintain a relationship with a provider in case of an illness Your height, weight, and BMI should be checked at every exam. During your exam, your provider may ask you about: Depression and anxiety Diet and exercise Alcohol and tobacco use Safety issues, such as using seat belts, smoke detectors, and intimate partner violence Your medicines and risk for interactions SKIN SELF-EXAM Your provider may check your skin for signs of skin cancer, especially if you're at high risk, such as if you: Have had skin cancer before Have close relatives with skin cancer Have a weakened immune system OTHER SCREENING Talk with your provider about colon cancer screening if you have a strong family history of colon cancer or polyps, or if you have had inflammatory bowel disease or polyps yourself. Routine bone density screening of women under 40 is not recommended. Walk-In Care (Urgent Care): We Make it Easy Walk-in for urgent medical issues such as: ? Seasonal Allergies ? Insect Bites ? Cough ? Diarrhea ? Acute Asthma Attacks ? Back, Knee or Joint Pain ? Ear Infection ? Fever without a Rash ? Headaches ? Nausea ? [place] Eye, Rash or Skin Irritation ? Sore Throat ? Sports Physicals ? Vomiting Most insurances are accepted. Patients do not need to be part of the [facility] to seek care at the walk-in clinic. Locations [facility] , [place] [address] ? [phone] [facility] Walk-In Care in [place] provides services to ages 18 and over. Open Saturday-Saturday: 8 a.m. to 5 p.m. and Saturday: 9 a.m. to 3 p.m.* *Hours may vary due to staffing availability. To confirm Walk-In Care hours in [place], please call [phone]. [address] [place] [address] ? [phone] [facility] Walk-In Care in [place] provides services to ages 12 and over. Open Saturday-Saturday: 8 a.m. to 5 p.m. Hours may vary due to staffing availability. To confirm Walk-In Care hours in [place], please call [phone]. LABORATORY SERVICES: [facility] Lab ? Primary Location [address] [place] [address] Saturday through Saturday 6:00 AM ? 5:00 PM Saturday 7:00 AM ? 11:00 AM* [phone] The [facility] Lab is centrally located near the front entrance of the Medical Center for easy outpatient access. Convenient parking is provided for outpatients. *Hours may vary due to staffing availability. To confirm Laboratory hours for any location, please call [phone]. Offsite Location For your convenience, we offer offsite laboratory draw stations at the following locations: [address] [place] [address] [address], [address], [place] Saturday through Saturday 7:30 AM ? 1:00 PM* [phone] *Hours may vary due to staffing availability. To confirm Laboratory hours for any location, please call [phone]. [place] ? [facility] [address] [facility] [place] Saturday through Saturday 6:00 AM ? 3:30 PM* Saturday 6:30 AM ? 3 PM* [phone] *Hours may vary due to staffing availability. To confirm Laboratory hours for any location, please call [phone] [place] [address] Saturday through Saturday 7:30 AM ? 4:00 PM* [phone] *Hours may vary due to staffing availability. To confirm Laboratory hours for any location, please call [phone] [place] [address] Saturday through 9:00 AM ? 4:00 PM* *Hours may vary due to staffing availability. To confirm Laboratory hours for any location, please call [phone]. Appointments are not necessary. Walk-ins are welcome. Like all the departments throughout the [facility], our Lab undergoes frequent reviews to ensure the quality and accuracy of test results, and our staff takes special pride in its status as a nationally accredited facility. Patient Portal: ONE PATIENT. ONE RECORD. BETTER CARE. [facility] has a fully integrated, cutting-edge mobile electronic health information system that has revolutionized the way we care for our patients and manage our organization. This system improves communication and coordination enabling us to provide safe, higher-quality care, and an overall positive experience for staff and patients. Our first priority, as always, is to deliver the highest quality care possible. The system is running in the background supporting that priority. This portal is for all [facility] [place] services and practices. If you are experiencing any technical difficulties with enrolling or logging into the Patient Portal please complete the [facility] Patient Portal Technical Support Form. [facility] now offers a new secure on-line interactive tool for patients to review their health information ? ?Patient Portal. This interactive web portal will enable patients and their families to take an active role in their care by providing easy, secure access to their health information via the internet. The Patient Portal provides patients with instant access to their health information, including laboratory results, medications, allergies, demographic information, visit history, and more. In addition to managing their own care, parents and health care proxies with authorized consent will appreciate the ability to access the records of those individuals for whom they provide care. Please note: if you wish to gain access (Proxy) to another patient?s portal, you will be required to come to the Medical Records Department in person at [facility]. Both the patient giving proxy access and the proxy will need to provide photo identification and complete the appropriate authorization. The Patient Portal also allows track their appointments online. The [facility] Patient Portal also saves patients time by allowing them to submit updates to their demographic and contact information prior to their visits. Portal email notifications will also alert patients to any new activity on their portal, such as test results and new appointments. In order to initially enroll in the [facility] Patient Portal, you will need to enter some required information including the following: your [facility] Medical Record number your personal home email address name date of Please note: In order to enroll in the [facility] Patient Portal, we need to have your email address on file in your electronic medical record. ?The email address needs to be specific for one person (yourself) in order for your Portal enrollment to be successful. ?You can update your email address in person with our Registration staff when you are registering for a hospital visit. ?Otherwise, you will need to come to the Health Information Management (Medical Records) Department at [facility]. ?We are open from Saturday ? Saturday from 7:30 a.m. ? 4:30 p.m. ?You will be required to present a photo id. Once you have successfully enrolled in the Patient Portal, you will receive a one-time user id and password for the Portal, sent to your email address. ?This will allow you to log into the Patient Portal within 99 hrs and reset your own logon id and password, and define personal security questions. ?Once your permanent login and password have been set, you can log into the [facility] Patient Portal at any time via the blue button above or from the Portal Logon button on any page of the [facility] website. [facility] and [facility] encourage all of our patients to enroll in Patient Portal as it presents a valuable opportunity for patients and their families to actively participate in their care and stay healthy Welcome to [facility]. ?We look forward to working with you. Review Flu Vaccine not done: patient reason Coding Level of Care Code Est Pt Prev Care 40-64y(40892) Diagnoses Encounter for general adult medical examination without abnormal findings Z00.00 Severe obesity (BMI 35.0-35.9 with comorbidity) E66.01; Z68.35 Right elbow tendonitis M77.8 IFG (impaired fasting glucose) R73.01 Mixed hyperlipidemia E78.2 Hyperlipidemia type: mixed hyperlipidemia Mild intermittent asthma in adult without complication J45.20 Migraine with aura and without status migrainosus, not intractable G43.109 Status migrainosus presence: without status migrainosus Intractability: not intractable Osteopenia, unspecified location M85.80 Osteopenia location: unspecified Compression fracture of L1 vertebra, sequela S32.010S Encounter type: sequela Additional Codes BRENNEN-7 Assessment Billing - BRENNEN-7 Assessment Tool: BRENNEN-7 Assessment [id number] ([id number])
[2024-04-09 08:10] VITALS: BP 108/74; PULSE 86; RESP 16; TEMP 36.7; O2SAT 96; BMI 35.0
== END 2024-04-09 09:01 | disposition home or self-care (01) ==
PROVIDERS: PCP Nurse Practitioner Family; Visit Provider Nurse Practitioner Family
DX: Z00.00 Encounter for general adult medical examination without abnormal findings (principal); E66.01 Morbid (severe) obesity due to excess calories; Z68.35 Body mass index [BMI] 35.0-35.9, adult; Z23 Encounter for immunization; M77.8 Other enthesopathies, not elsewhere classified; R73.01 Impaired fasting glucose; E78.2 Mixed hyperlipidemia; J45.20 Mild intermittent asthma, uncomplicated; G43.109 Migraine with aura, not intractable, without status migrainosus; M85.80 Other specified disorders of bone density and structure, unspecified site; S32.010S Wedge compression fracture of first lumbar vertebra, sequela
CPT/HCPCS: 90471; 90715; 99396

== ENCOUNTER 2024-04-10 15:12 | Outpatient (AMB) | payer OTHER, SELFPAY ==
[2024-04-10 15:15] VITALS: BMI 34.9
--- NOTE | 2024-04-10 15:15 | A.OFFVIS_ITS ---
<Statement entered by Jacky Livingston MD - 04/13/24 10:00> I agree with PA assessment and plan. 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 Patient reports pain in her elbow for about 2 years. She has tried acupuncture for about 4 months with some relief. Currently she has a constant dull ache, tenderness and weakness in her arm. States difficulty with gripping items. Denies numbness or tingling. Finds some relief with Motrin and icing. Allergies No Known Allergies Allergy (Verified 04/09/24 08:17) HPI Comments Details: Patient is a 53 YO F who presents to the office today for evaluation of lateral right elbow pain, ongoing for approximately 2 years. She reports that this began as a mild discomfort at that time, but reports that it has worsened over this time, to the point where she struggles with lifting with her R arm. Patient denies any numbness or tingling in the distal right upper extremity. The patient inquires about the potential options available to her. No other acute complaints at this time. [facility] Medical History (Updated 04/13/24 @ 09:31 by GERA Anderson) Skin lesion Achilles tendinitis of right lower extremity [place] of toe Impetigo Migraine with aura Asthma Surgical History Hx of section Hx of abdominoplasty History of bilateral breast reduction surgery Family History (Updated 04/09/24 @ 08:06 by Noy Barth) Father COPD (chronic obstructive pulmonary disease) Alcohol abuse Mother Diabetes Asthma Brother Substance use disorder Cardiomyopathy Alcohol abuse Son In good health Sister In good health Sister In good health Sister In good health Social History (Updated 04/10/24 @ 15:18 by BALDEV Mohr) Housing: House Alcohol intake: never Patient Tobacco Use Status: Former Tobacco user e-Cigarette/Vaping Use: Never Used Second Hand Smoke Exposure: No service: No Current occupational status: employed 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, 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 Current occupational exposures/hazards: No Sexual orientation: Straight/Heterosexual Gender identity: Female Cognitive needs: No Hearing needs: No Vision needs: Yes (glasses) Review of Systems Const All systems reviewed & are unremarkable except as noted in HPI and below Physical Exam Vital Signs: BMI result Body Mass Index 34.9 Const Other: Patient is alert, oriented, cooperative, and in no acute distress HEENT Head: Yes normocephalic and Yes atraumatic Resp Effort & Inspection: normal respiratory effort and able to speak in complete sentences Cardio Jugular venous distension: no JVD Neuro General: gait normal Cognition (Neuro): normal cognition Extrem Other: Patient's right elbow normal to inspection. No erythema, ecchymosis, evidence of infection No lacerations or abrasions noted On palpation, there is marked tenderness to both the medial and lateral epicondyles, worse on lateral ROM of the R elbow full and intact Positive Cozen's test and reverse Cozen's test, more pain on traditional Cozen's test Distal Sensation intact Capillary refill brisk Psych Appearance: grossly normal Mental Status: mental status grossly normal Assessment & Plan Assessment & Plan (1) Lateral epicondylitis of right elbow: Code(s): M77.11 - Lateral epicondylitis, right elbow Category: Medical (2) Medial epicondylitis of right elbow: Code(s): M77.01 - Medial epicondylitis, right elbow Category: Medical Plan 1. Lateral epicondylitis of right elbow 2. Medial epicondylitis of right elbow At this time, patient is informed that the 1st line treatment for both medial and lateral epicondylitis Patient is initially frustrated by this, as she was hoping to get an injection, as her previously had an injection and had great relief Patient is educated that PT can bring permanent relief of symptoms without any of the risks of injections, and injections can mask symptoms until they wear off, which can lead to recurrence of symptoms Patient is also educated that recovery from these conditions is not a short term process, and can take weeks to months Patient is amenable to PT after education Patient will follow up 4 weeks after initiating PT for reassessment of symptoms, sooner with any acute concerns Coding Level of Care Code New Pt Level 3 (51725) Diagnoses Lateral epicondylitis of right elbow M77.11 Medial epicondylitis of right elbow M77.01
== END 2024-04-10 15:34 | disposition home or self-care (01) ==
PROVIDERS: PCP Nurse Practitioner Family
DX: M77.11 Lateral epicondylitis, right elbow (principal); M77.01 Medial epicondylitis, right elbow
CPT/HCPCS: 99203

== ENCOUNTER → 2024-04-10 15:12 | Outpatient (BNVA) | payer OTHER, SELFPAY | PROVIDERS: PCP Nurse Practitioner Family ==

== ENCOUNTER 2024-06-03 07:30 | Outpatient (RCR) | payer OTHER, SELFPAY ==
--- NOTE | 2024-05-15 09:27 | MHC.OT.EP ---
[address] [phone] Occupational Therapy Plan of Care Patient Name: Caro Rios Date of Evaluation: 05/15/24 Diagnosis: Right lateral and medial epicondylitis Pain Location: Low pain (dull ache) right dorsal forearm and lateral epicondylitis High pain w/ heavier use or increased activity Pain Score: 8 Pain Scale Used: Numeric (0 - 10) Aggravating Factors: Gripping, lifting Alleviating Factors: Ice, [facility], TENS unit, Motrin daily Assessment: 53 yo female w/ hx of right lateral epicondylitis, tried acupuncture, exercises (Lozada stretches), elbow sleeve, but has had no relief. She was seen at [facility] and referred to OT prior to receiving cortisone injection. On assessment, she has low hospice physician strength (10lb) w/ painful hospice physician and (+) Cozen's, consistent w/ lateral epicondylitis. She has tenderness at distal tricep, lateral epi and dorsal wad. I anticipate she will do well w/ course of occupational therapy, although w/ chronic pain may take a bit longer. Frequency and Duration: The patient will be seen 2x/wk for 4 weeks Short Term Goals: Ind w/ joint protection techniques (including CFB wear) Ind w/ use of heat and cold modalities Good follow through w/ work station recommendations Manager Photography Goals: Ind w/ progression of strengthening exercises Right gross grasp >20lb Pt to report <2/10 pain w/ moderate daily activities (cooking, laundry, etc) QuickDASH <30 pts Treatment Plan: Therapeutic Exercise Therapeutic Activity Home Exercise Program Splinting Patient Education ADL Training Ultrasound Iontophoresis MHP Cold Packs Soft Tissue Mobilization Kinesiotaping Ionto w/ dexamethasone Possible nighttime orthosis Electronically Signed By: Suzanna Ross OTR/Trino CHT Please Sign and return to therapist. Thank you once again for your referral.
--- NOTE | 2024-07-08 11:34 | MHC.OT.DC ---
[address] [phone] F: [phone] Occupational Therapy Discharge Note Patient Name: Caro Rios Provider: Holden Bragg PA-C Diagnosis: Right lateral and medial epicondylitis Date of Surgery: Date of Evaluation: 05/15/24 Date of Discharge: 07/08/24 Treatments to Date: 4 Cancellations to Date: No Shows to Date: Discharge Status: Independent with HEP Discharge Summary: Caro was referred to OT for right lateral and medial epicondylitis. She has been progressing well w/ home program and use of ionto w/ dexamethasone, reporting less frequency of pain. She has not attended OT in over a month, per chart she has returned to ortho and received infection. No further OT services at this time, she is Ind w/ home program. Electronically Signed By: MELO Ruiz/Trino CHT Reviewed/agree with student documentation: Therapist: Please Sign and return to therapist, thank you for your referral.
== END 2024-07-08 11:34 | disposition home or self-care (01) ==
LOC: HO.OT 07:30
PROVIDERS: PCP Nurse Practitioner Family
DX: M77.11 Lateral epicondylitis, right elbow (principal)
CPT/HCPCS: 97033; 97110; 97140; 97165

== ENCOUNTER 2024-06-05 08:51 | Outpatient (AMB) | payer OTHER, SELFPAY ==
--- NOTE | 2024-06-05 08:59 | A.OFFVIS_ITS ---
Vital Signs 06/05/24 09:01 Height 5 ft 2 in Weight 180 lb BMI 32.9 Handedness Right Intake Visit Reasons: OV- Right elbow tendonitis Intake Note: Caro is a 53 year old 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 female who presents today for a follow up of her medial and lateral epicondylitis of her right elbow. Patient reports she had 5 visits with PT but these provided no relief. She has constant aching pain daily, she does as much as possible with her left arm to avoid exacerbating her symptoms. She has been taking Motrin but says this only takes the edge off. Allergies No Known Allergies Allergy (Verified 06/05/24 09:02) HPI HPI OV- Right elbow tendonitis: Details: Patient is a 53-year-old female who presents for repeat evaluation of lateral epicondylitis of the right elbow. Patient reports that she has been doing OT fo r the last few weeks, but states that this has been of minimal help, and she still experiences significant discomfort in the lateral epicondyle of the right elbow. Pain is dull at baseline, but becomes sharp with activity. Patient denies any numbness or tingling in the right hand. No other complaints or concerns at this time. [facility] Medical History Skin lesion Achilles tendinitis of right lower extremity [place] of toe Impetigo Migraine with aura Asthma Surgical History Hx of section Hx of abdominoplasty History of bilateral breast reduction surgery Family History Father COPD (chronic obstructive pulmonary disease) Alcohol abuse Mother Diabetes Asthma Brother Substance use disorder Cardiomyopathy Alcohol abuse Son In good health Sister In good health Sister In good health Sister In good health Social History Housing: House Alcohol intake: never Patient Tobacco Use Status: Former Tobacco user e-Cigarette/Vaping Use: Never Used Second Hand Smoke Exposure: No service: No Current occupational status: employed 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, 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 Current occupational exposures/hazards: No Sexual orientation: Straight/Heterosexual Gender identity: Female Cognitive needs: No Hearing needs: No Vision needs: Yes (glasses) Review of Systems Const All systems reviewed & are unremarkable except as noted in HPI and below Physical Exam Vital Signs: BMI result Body Mass Index 32.9 Extrem Other: On inspection, there is no visible deformity of the right elbow No edema, erythema, ecchymosis noted No lacerations or abrasions No evidence of infection Patient reports tenderness to palpation over the lateral epicondyle of the right elbow No tenderness to palpation of the medial epicondyle, radial head, or olecranon process Patient is able to make a closed fist and extend all digits of the right hand fully Patient is able to extend the right elbow to 0 degrees and flex to approximately 150 degrees without difficulty Positive Cozen's on the right Distal sensation intact Capillary refill brisk Office Procedures Tendon Injection Tendon Injection Details: Lateral epicondylits injection [id number] Tendon Sheath Injection All charges added?: Procedure code (CPT) selection complete Assessment & Plan Assessment & Plan (1) Lateral epicondylitis of right elbow: Code(s): M77.11 - Lateral epicondylitis, right elbow Category: Medical Plan 1. Lateral epicondylitis of right elbow I educated the patient about this condition and the treatment options Patient would like to proceed with steroid injection The risks and benefits of a steroid injection including but not limited to risk of damage to blood vessels, nerves, tendons, infection, skin bleaching, failure to improve symptoms, increased pain, and possible need for further injections or other intervention were discussed with the patient and the patient wishes to proceed with the steroid injection. Once consent was obtained, I aseptically prepped the area over the lateral epicondyle of the right elbow. I then injected the area over the lateral epicondyle with a combination of 40 mg of dexamethasone and 1 mL of 1% lidocaine. The patient tolerated the procedure well with no complications. If the patient continues to experience symptoms over the next 6-8 weeks, they can make an appointment to return and discuss alternative treatment measures, such as physical therapy. Follow-up prn Coding Level of Care Code Est Pt Level 3 (20211) Diagnoses Lateral epicondylitis of right elbow M77.11 CPT Codes Tendon Injection - Tendon Injection 1: [id number] Tendon Sheath Injection ([id number])
[2024-06-05 09:01] VITALS: BMI 32.9
== END 2024-06-05 09:40 | disposition home or self-care (01) ==
PROVIDERS: PCP Nurse Practitioner Family
DX: M77.11 Lateral epicondylitis, right elbow (principal)
CPT/HCPCS: 20550; 99213

== ENCOUNTER → 2024-06-05 08:51 | Outpatient (BNVA) | payer OTHER, SELFPAY | PROVIDERS: PCP Nurse Practitioner Family | DX: M77.11 Lateral epicondylitis, right elbow (principal) | CPT/HCPCS: 20550; J1100 ==

== ENCOUNTER 2024-06-12 13:48 | Outpatient (REF) | payer OTHER, SELFPAY ==
--- NOTE | ~2024-06-12 | MM_ITS ---
EXAMINATION: MM SCREENING DIGITAL BREAST TOMOSYNTHESIS, BILATERAL CLINICAL INFORMATION: Screening. Asymptomatic. COMPARISON: Mammography: Comparison is made with available priors TECHNIQUE: Digital breast mammography with tomosynthesis is performed in both the craniocaudal and mediolateral oblique views along with computer-aided detection (CAD). FINDINGS: There are scattered areas of fibroglandular density (ACR BI-RADS breast composition Category b). Bilateral reduction mammoplasty. There are no significant masses, abnormal calcifications, or other abnormalities. MM/MM tomosynthesis screening BI IMPRESSION: No mammographic evidence of malignancy. ASSESSMENT: BI-RADS BI-RADS 2 - Benign Findings RECOMMENDATION: Routine annual mammography screening. 1 year F/U This examination should not preclude the clinical evaluation of a suspicious palpable abnormality. This patient's information was entered into a reminder system with a target due date for their next mammogram. Electronically signed by: Shannen Whipple DO 06/24/2024 03:17 PM EDT
== END 2024-06-12 13:49 | disposition home or self-care (01) ==
LOC: HO.MAMMO 13:48
PROVIDERS: Visit Provider Advanced Practice Midwife
DX: Z12.31 Encounter for screening mammogram for malignant neoplasm of breast (principal)
CPT/HCPCS: 77063; 77067

== ENCOUNTER → 2024-06-12 14:00 | Outpatient (BNV) | payer OTHER, SELFPAY | PROVIDERS: Visit Provider Internal Medicine | DX: Z12.31 Encounter for screening mammogram for malignant neoplasm of breast (principal) | CPT/HCPCS: 77063; 77067 ==

== ENCOUNTER 2025-01-11 06:04 | Outpatient (REF) | payer OTHER, SELFPAY ==
--- OUTSIDE RECORDS SUMMARY | 2025-01-11 06:07 | XMS_ITS ---
Author [facility] janay Guadalupe Address [address] [place] [address] Care Team Providers Care Airport Baggage Screener Name Role Phone Mariana Zarco Primary Care Provider Jennifer Hawkins Unavailable [phone] Allergies No Known Allergies REASON FOR VISIT Pcp- /, Painful Toe(s) Medications Medication SIG (Take, Route, Fr equency, Duration) Notes Start Date End Date Status Albuterol PRN Active Vitamin D Active Vitamin C Active Calcium Magnesium Ac tive Social History Tobacco Use: Social History Observation Description Date Details (start date - stop date) Former Smoker NA - NA Tobacco Use/Smoking Question Answer Notes Are you a: former smoker Additional Findings: Tobacco User Heavy cigarett e smoker (20-39 cigs/day) Alcohol Screen Question Answer Notes Did you have a drink containing alcohol in the p ast year? No Points 0 Interpretation Negative Tobacco use other than smoking: Question Answer Notes Are you an other tobacco user? No Problems Problem Type SNOMED Code ICD Code Onset Dates Problem Status W/U Status Risk Notes Problem Acquired hammer toe of left foot (8440260885353860) Other hammer toe(s) (acquired), left foot (M20.42) Active confirmed Problem Localized, primary osteoarthritis of the ankle and/or foot (051110863) Arthritis of joint of lesser toe, left (M19.072) Active confirmed Vital Signs Height 5ft 2in in 11/22/2023 Weight 170 lbs 11/22/2023 BMI 31.09 kg/m2 11/22/2023 Blood pressure systolic 120 mm Hg 11/22/19 24 Blood pressure diastolic 70 mm Hg 024 Hc Percentile / % 11/22/2023 Encounters Encounter Location Date Provider Diagnosis [facility] [place] [address] [place] [address] 11/22/2023 Jennifer Layton Pain in left toe(s) M79.675 and Other hammer toe(s) (acquired), left foot M20.42 Assessments Encounter Date Diagnosis (ICD Code) Assessment Notes Treatment Notes Treatment Clinical Notes Section Notes 11/22/2023 Pain in left toe(s) (ICD-10 - M79.675) 11/22/2023 Other hammer toe(s) (acquired), left foot (ICD-10 - M20.42) Plan Of Treatment Pending Test Test Name Order Date X ray : Foot, left 3V 11/22/2023 Next Appt Details Follow Up: prn, Reason: Progress Notes * Mannie RIOSOB:1970 ([age] yo F)Acc No.[id number]:11/22/2023 Progress Notes Patient:?Caro Rios Provider:?Jennifer aLyton DPM :1970???Age:53 Y???Sex:Female D ate:11/22/2023 Address:[address] [place], [place] [id number] Pcp:Mariana Zarco Subjective: * Chief Complaints: * ???Pcp- /Painful Toe(s) * HPI: ???Toe pain:?Nature:?tenderness.?Location:?Left foot 5th toe.?Duration:?a year or more.?Course:?worse.?Aggrevated by:?any pressure, shoes.?Treatments:?rest/alter normal daily activity, change in shoes bracing/splinting/padding.? * ROS:?General/Constitutional:?Nausea?denies.?Vomiting?denies.?Hunger Thirst?denies.?Loss appetite?denies.?Chills?denies.?Fatigue?denies.?Fever?denies.?Night Sweats?denies.?Unexplained weight loss?denies.?Unexplained weight gain?denies.?HEENTM:?Dentures?denies.?Dizziness?denies.?Glasses/contacts?admits.?Retinopathy?de nies.?Blurred/double vision?denies.?TMJ?denies.?Discharge/drainage?denies.?Implants?denies.?Sore throat?denies.?Dental implants?denies.?Hard of hearing ?denies.?Difficulty chewing/swallowing/speaking?denies.?Nose bleeds?denies.?Sore mouth?denies.?Respiratory:?On Oxygen?denies.?Pneumonia/pleurisy?denies.?Bronchitis?denies.?Emphysema?denies.?C oughing?denies.?Cough blood?denies.?Shortness of breath?denies.?Wheezing?denies.?Cardiovascular:?Pacemaker?denies.?MVP?denies.?WPW?denies.?CHF?denies.?Heart attack?denies.?Septal defect?denies.?Rapid beat?denies.?Chest pain ?denies.?Atrial Fib.?denies.?Murmur/Palpitations?denies.?Gastrointestinal:?Hemorrhoids?denies.?Stomach/Abdominal pain?denies.?Dark blood stool?denies.?Irritable bowel ?denies.?Constipation?denies.?Diarrhea?denies.?Hematology:?Swelling?denies.?Clots?denies.?Varicose Veins?denies.?Bruising?denies.?Bleeding problem?denies.?Genitourinary:?Blood urine?denies.?Frequent/Painfu/urination/bladder control?denies.?Kidney stones?denies.?Infection (UTI)?denies.?Nephropathy?denies.?sex trans dis (STD)?denies.?Prostate?denies.?Musculoskeletal:?Hammertoes?denies.?Bunions?denies.?Back Pain?denies.?Muscle Cramps/ Resting?denies.?Muscle cramps / walking?denies.?Generalized aches and pains?admits.?Weakness?denies.?Integ.:?Barriga?denies.?Scars?denies.?Corns/calluses?denies.?Ingrown nails?denies.?Painful nails?denies.?Open Sores?denies.?Rashes?denies.?Neurologic:?Difficulty sleeping?denies.?Brain disorder?denies.?Numbness?denies.?Balance trouble?denies.?Confusion?denies.?Fainting/blackouts?denies.?Tingling?denies.?Tr emors?denies.? * Medical History:? * Surgical History:? 10/26/1998breast reduction 07/2013Tummy tuck 07/2013 * Hospitalization/Major Diagno stic Procedure:?Denies Past Hospitalization * Family History:?Mother: zhang moya with Family history of arthritis, Diabetic - NIDDM, Unspecified essential hypertension.? * Social History:?Tobacco Use:?Tobacco Use/Smoking?Are you a:?former smoker ?Additional Findings: Tobacco User?Heavy cigarette smoker (20-39 cigs/day) ?Tobacco use other than smoking?Are you an other tobacco user??No ???Drugs/Alcohol:?Drugs?Have you used drugs other than those for medical reasons in the past 12 months??No ?Alcohol Screen?Did you have a drink containing alcohol in the past year??No ?Points?0 ?Interpretation?Negative ???Miscellaneous:?Caffeine: yes, frequency:, 2-3 cups per day. ?Children: yes, 1. ?Exercise: yes, walking, strength training. ?Marital status: . 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 * Medications:?TakingCalcium M agnesium Vitamin C Vitamin D Albuterol , Notes: PRNMedication List reviewed and reconciled with the patientTaking Calcium Magnesium Taking Vitamin C Taking Vitamin D Taking Albuterol , Notes: PRNMedication List reviewed and reconciled with the patient * Allergies:?N.K.D.A.yes[Aller gies Verified] Objective: * Vitals:?Ht: 5ft 2in, Wt:170, BMI:31.09, Shoe size: 8, BP:120/70 mm Hg, Ht-cm: 157.48 cm, Wt-k.11 kg, HC %:/ %. * Examination: ???General Examination: ?GENERAL APPEARANCE:?Reveals a pleasant, alert, well-nourished, well- developed, well hydrated individual, who demonstrates proper attention to hygiene/body habitus, and is in no acute distress, Pt serves as own?historian for office visit today.?ORIENTED:?person, place, and time.?Neurological: ?SENSORY:?Neurological exam reveals intact sensorium, pain sensation normal, vibration sensation intact, pinprick sensation is normal in the lower extremities, Pt denies, anesthesia, burning, paresthesia, tingling, B/L.?DEEP TENDON REFLEXES:?Achilles, 2/4, B/L.?Vascular: ?DP PULSES:?3/4, B/L.?PT PULSES:?3/4, B/L.?CAPILLARY FILL TIME:?immediate, all digits, B/L.?SKIN TEMPERTURE GRADIENT OF THE LOWER EXTERMITIES:?warm to cool, proximal to distal, B/L.?HAIR GROWTH/TEXTURE/ELASTICITY/TURGOR:?normal, B/L.?PIGMENTATION:?normal, B/L.?EDEMA:?absent, B/L.?Dermatologic: ?SKIN FINDINGS:?Skin exam reveals normal texture, elasticity, and turgor. There are no masses. The interspaces are clear.?Orthopedic: ?MUSCLE STRENGTH:?5/5 all groups in a symmetrical fashion , B/L.?DIGITAL DEFORMITIES:? Digital contracture, PIPJ, 2-5 B/L, reducible with WB, or to push-up test, no over, nor underlapping Adducto-varus deformity noted Adducted fifth toe(s) T4.?FOOTWEAR:? shoe gear properties exacerbate patients foot/toe deformity.?X-Rays - IMAGING REPORT: ?Clinical Indication(s):? Evaluate Biomechanical Deformity.?Views:? 3 views of Foot, AP, LO, MO, LEFT.?Findings:? normal bone and soft tissue density consistent for patients age and sex.?Digits:? show asymmetrical joint space narrowing at the PIPJ consistent with clinical finding of hammertoe deformity.?Fracture:? Negative fractures identified.? Assessment: * Assessment: 1.?Pain in left toe(s) - M79 .675?2.?Other hammer toe(s) (acquired), left foot - M20.42 (Primary), Dx New problem, Prognosis Uncertain (4)? Plan: * Treatment: * Procedure Codes:?25514 X-RAY EXAM OF LEFT FOOT 3V, Modifiers: 26 , LT * Preventive Medicine:? ??Counseling:?Discussion:?-04: Office or other outpatient visit for the evaluation and management of a new patient, which required a medically appropriate history and/or examination and MODERATE level of DECISION MAKING for: 1 OR MORE CHRONIC PROBLEM(S) THATS WORSENING, 2 STABLE CHRONIC PROBLEMS, A NEWLY DIAGNOSED PROBLEM WITH UNCERTAIN PROGNOSIS, AN ACUTE COMPLICATED INJURY WITH MULTIPLE TREATMENT OPTIONS, OR AN ACUTE PROBLEM WITH ACCOMPANYING SYSTEMIC SYMPTOMS, THAT POSE(S) A MODERATE RISK OF MORBIDITY. THIS CONDITION MAY ALSO INCLUDE RX DRUG MANAGEMENT, OR A DECISON FOR MINOR SURGERY. The visit on the day of the encounter encompassed interpreting the data and educating the patient as to the nature of their condition, treatment options available according to their individual PMH, meds, allergies, and overall health/living conditions, as well as any potential risks or complications that may occur from a failure to adhere to, and participate in, the recommended course of therapy. The discussion included a complete verbal, and/or written explanation of the examination results, any x-rays taken, the proposed diagnosis, and outline of the treatment plan. A schedule for future care needs was also explained. The patient verbalized an understanding of the instructions at this time and agreed to be an active participant in their treatment. If the patient should think of any questions or concerns after the visit, I have encouraged the patient to call the office.?Digital Surgery:?Digital surgery was discussed with the patient, including the risks of surgery(below), vs not having surgery (persistent pain, deformity, risk for skin ulceration/infection, loss of toe), the potential surg complications, the anesthesia, and the usual post-op course. No guarentees were given. We discussed the potential procedure complications including, but not limited to: pain, swelling, bleeding, scarring, numbness, infection, delayed/non healing, floppy/unstable/shorthened toe, recurrence, failure of the procedure, overcorrection leading to plantarflexed/downward positioned toe, recurrence, need for further surgery, as well as the possibility for loss of the toe itself. We discussed the use of local anesthesia, and the usual post-op course for healing. No guarentees were given. The patient verbally indicated a full understanding of the above conversation, and any other of their questions were answered to their satisfaction. Alternatives to the procedure were also discussed, including conservative care. I also discussed the usual post-operative course and gave no guarantees regarding outcome.?Digital Treatment:?I explained to the patient the possible etiologies of Hammertoes, including genetics/foot type/shoegear/activity level/exercise routine and the risks/benefits of all the different treatment options for their pain including: No treatment at all, Rest, Ice, New/supportive/wider/deeper Shoegear, Digital Padding/Strapping/Taping/Bracing/Gel protective sleeves, Foot/Ankle AFO Bracing, Stretching exercises, Deep Tissue Massage, Arch support/shoe inserts with splay metatarsal padding, and Custom orthoses. I insisted that any digital devices be removed daily and not worn overnight for safety. The patient is to carefully examine the toes daily for any skin irritation while using any splinting or padding device. The advantages and disadvantages of each option were discussed and the patients questions re: shoegear, padding, custom vs prefabricated inserts, activity level, and consistency in home treatment regimens for optimal success were answered to their verbally confirmed satisfaction.?Shoe Gear Counseling:?The patient and I reviewed the types of shoes they should be wearing. My recommendation included obtaining a well-fitted shoe with a good supportive, non-foldable nor twistable sole, plenty of toe/room for the forefoot, and proper arch support. Based on todays examination, I recommended the patient look for new shoes, by having their feet professionally measured. We discussed that generally the best time of the day for a shoe fitting is the afternoon. Different shoes types and brands to best match the patients occupation and vocation were discussed. Specific brand selection will be up to the patient, their individual foot condition/deformities, and fit. The patient and I reviewed the standard new shoe break in period by wearing them for a few hours a day while checking for redness or sores as wear time is increased. The patient verbally confirmed to understanding the information discussed.?X-rays:?Discussed and reviewed the X-rays with the patient. We discussed how the findings relate to the patients symptoms/complaints. Answered any and all questions..? * Follow Up:?prn * Images: * Sign off status: Completed true * Provider:?Jennifer Layton DPM Date:?04/2024 Generated for Rashawn sousa/Nasreen/eTransmitting on:?01/11/2025 06:07 AM EDT History and Physical Notes * HPI (History of Present Illness) Category Sub-Category Detail Notes Category Not es Toe pain Nature: tenderness Location: Left foot 5th toe Duration: a year or more Course: worse Aggravated by: any pressure, shoes Treatments: rest/alter normal da zackery activity, change in shoes bracing/splinting/padding Examination Category Sub-Category Detail Notes Category Not es Neurological SENSORY: Neurological exa m reveals intact sensorium, pain sensation normal, vibration sensation intact, pinprick sensation is normal in the lower extremities, Pt denies, anesthesia, burning, paresthesia, tingling, B/L DEEP TENDON REFLEXES: Achilles, 2/4, B/L Dermatologic SKIN FINDINGS: Skin exam reveal s normal texture, elasticity, and turgor. There are no masses. The interspaces are clear Orthopedic FOOTWEAR EVALUATION: shoe gear p roperties exacerbate patients foot/toe deformity DIGITAL DEFORMITIES: Digital contracture , PIPJ, 2-5 B/L, reducible with WB, or to push-up test, no over, nor underlapping Adducto-varus deformity noted Adducted fifth toe(s) T4 MUSCLE STRENGTH: 5/5 all groups in a symmetrical fashion , B/L General Examination GENERAL APPEARANCE: Reveals a pleasant, alert, well- nourished, well-developed, well hydrated individual, who demonstrates proper attention to hygiene/body habitus, and is in no acute distress, Pt serves as own historian for office visit today ORIENTED: person, place, and t miguel Vascular DP PULSES (B): 3/4, B/L PT PULSES (B): 3/4, B/L CAPILLARY FILL TIME: immediate, all digi ts, B/L TEMPERTURE GRADIENT (C): warm to cool, p roximal to distal, B/L TROPHIC CONDITION-TEXTURE/ELASTICITY/TURGOR/HAIR GROWTH (B): normal, B/L EDEMA (C): absent, B/L PIGMENTATION: normal, B/L X-Rays - IMAGING REPORT Findings: normal b one and soft tissue density consistent for patients age and sex Fracture: Negative fractures i dentified Digits: show asymmetrical becky int space narrowing at the PIPJ consistent with clinical finding of hammertoe deformity Views: 3 views of Foot, AP, LO, MO, LEFT Clinical Indication(s): Evaluate Biomech anical Deformity
--- OUTSIDE RECORDS SUMMARY | 2025-01-11 06:07 | XMS_ITS ---
Author Organization [facility] Address [address] [place] [address] Care Team Providers Care Farm Appraiser Name Role Phone Mariana Zarco Primary Care Provider Jennifer Hawkins [phone] REASON FOR VISIT buy narrow gel tube Encounters Encounter Location Date Provider Diagnosis [facility] [address] [place] [address] 11/22/2023 Jennifer Layton Plan Of Treatment No Information Progress Notes * Mannie RIOSOB:1970 ([age] yo F)Acc No.[id number]:11/22/2023 Patient:?Caro Rios :1970???Age:53 Y???Sex:Female Address:[address] [place] [address], [address] * true * Date:? Generated for Printi ng/Fatyroneg/eTransmitting on:?01/11/2025 06:07 AM EDT
--- OUTSIDE RECORDS SUMMARY | 2025-01-11 06:08 | XMS_ITS | Patient Health Record ---
Author Organization [facility] Address [address] [place] [address] Care Team Providers Care Director Camp Name Role Phone Mariana Zarco Primary Care Provider Jennifer Hawkins Unavailable [phone] Allergies No Known Allergies Reason For Referral No Information Medications Medication SIG (Take, Route, Fr equency, [...] Problem Acquired hammer toe of left foot (9211761229487198) Other hammer toe(s) (acquired), left foot (M20.42) Active confirmed Problem Localized, primary osteoarthritis of the ankle and/or foot (514138379) Arthritis of joint of lesser toe, left (M19.072) Active confirmed Plan Of Treatment Pending Test Test Name Order Date X ray : Foot, left 3V 11/22/2023 Insurance Providers Payer Name Payer Address Payer Phone Subscriber Number Group Number Insured Name Patient Relationship to Insured Coverage Start Date Coverage End Date [facility] [address] [place] [address] [phone] [id number] Augustin Rios Spouse - patient is the spouse of the insured Medical (General) History Medical History History ICD Code Back,Hip,and Knee pain covid-19 Headaches/Migraines Osteoporosis Psoriasis/eczema Chicken pox Compress Fracture Surgical History Surgery Date(Month/Year) 10/26/1998 breast reduction 07/2013 Sherita martinez 07/2013
[2025-01-11 10:34] LABS: Alanine Aminotransferase 28 U/L (0-31); Albumin Level 4.4 g/dL (3.5-5.0); Alkaline Phosphatase 76 U/L (39-117); Anion Gap 12 (12-20); Aspartate Amino Transferase 25 U/L (5-31); Bilirubin Total 0.3 mg/dL (0.0-1.0); Blood Urea Nitrogen 20 mg/dL (9-16); Calcium 9.3 mg/dL (8.4-10.2); Carbon Dioxide 28 mmol/L (22-29); Chloride 105 mmol/L (96-108); Cholesterol 243 mg/dL (<200); Estimated Glomerular Filt Rate > 60; Glucose Fasting 107 mg/dL (60-99); HDL Cholesterol 72 mg/dL (>40); LDL Cholesterol Calculated 158 mg/dL (<100); Potassium 4.3 mmol/L (3.3-5.1); Sodium 141 mmol/L (135-145); Total Protein 7.5 g/dL (6.5-8.0); Triglycerides 67 mg/dL (<150)
[2025-01-11 10:48] LABS: Estimated Average Glucose 128 mg/dL; Hemoglobin A1C 158.1516 umol/L; Hemoglobin A1c % 6.1 % (<6.0); Total Hemoglobin (HGBA1C) 3671.0566 umol/L
== END 2025-01-11 06:05 | disposition home or self-care (01) ==
LOC: HO.HMGCLDS 06:04
PROVIDERS: PCP Nurse Practitioner Family; Visit Provider Nurse Practitioner Family
DX: E78.5 Hyperlipidemia, unspecified (principal); R73.01 Impaired fasting glucose
CPT/HCPCS: 36415; 80053; 80061; 83036

== ENCOUNTER 2025-01-13 09:14 | Outpatient (AMB) | payer OTHER, SELFPAY ==
--- NOTE | 2025-01-13 09:17 | A.OFFPC_ITS ---
Vital Signs 01/13/25 09:20 Height 5 ft 2 in Weight 199 lb BMI 36.4 Intake Visit Reasons: Fu Labs Allergies No Known Allergies Allergy (Verified 01/13/25 09:17) Medication List - Last Reconciled 01/13/25 by Anika Flores, [facility]- albuterol sulfate 90 mcg/actuation 1 puff inhalation QID PRN ysxnhxwbnc-lcpxycsajbwqd-hxxx 50-300-40 mg 1 cap PO Q8H PRN triamcinolone acetonide 0.5% 1 appl topical DAILY PRN Tobacco use date assessed: 01/13/25 Dental Screening Dental Screen Date: 01/13/25 Did you have a dental visit in the last 12 months?: Yes Did you have a dental problem in the last 6 months where you did not have access to dental care?: No Was dental information given to patient?: Patient has dentist HPI HPI Comments History of Present Illness Details 54-year-old female with osteopenia, migr anju, asthma, compression fracture L1 vertebrae, impaired fasting glucose, hyperlipidemia Status post , abdominoplasty, bilat breast reduction surgery Health Maintenance: ? Colon Cologuard 07/05/2023 negative ? Mammo 06/12/24 ? DEXA 03/05/2023 ? PAP 07/16/2023 ? Tdap 2023, Flu declined Specialists: Podiatry addictions counselor assistant Dermatology History of Present Illness - The patient is a 54-year-old female pr esenting for a review of laboratory results related to hyperlipidemia and elevated A1c levels. - Her Hemoglobin A1c has increased to 6. 1% from 5.9% since March. The patient acknowledges a recent pattern of emotional eating over several months attributed to managing stress from bereavement and family concerns, influencing her diet negatively. The patient feels better equipped to handle stress currently. - A lipid profile indicated worsened res ults, with increased total and LDL cholesterol levels, though there has been a slight increase in HDL cholesterol levels. - The patient uses her albuterol inhaler more than advisable, influenced by physical activity-related asthma exacerbated by recent weight gain. Trialed use of brothers Symbicort with + effect, wonders if she can have this Rx to her - Emotional eating has led to weight con sistency around 199 pounds. The patient is aware of her need for dietary management and is open to the consideration of pharmacological support. - has migraines, needs refill on fiorice t 15 minutes spent Discussing different fo ger of medications to help with weight loss. Discouraged the use of GLP-1s due to the need to use lifelong, weight gain after discontinuation, cost and cancer risk. Educated about the use of Wellbutrin which can be used in patients without a seizure history. This medication works by blocking out the reward center related to mindless eating. It also has a mild stimulating effect. The side effect profile includes mild anxiety as well as a slight dizzy sensation. Another medication used is metformin, this is a diabetic medication. This medication has GI side effects. But can be very beneficial in aiding with weight loss in patients without diabetes. Topiramate was also discussed. This is a seizure medication with side effect profile that includes need to monitor LFTs as well as blood counts. One of the side effects is weight loss. Another medication, Phentermine is a stimulant/controlled substance. This is an anorexient that is used short-term medication used. Finally the use of a medication called Contrave, which is Wellbutrin + naltrexone can be used. The brand name is usually not cover therefore would have to prescribe the 2 medications individually. This medication works just as the Wellbutrin; naltrexone aides in further blocking of the reward center to aide in wt loss. After discussion of the above, the patient wishes to proceed with Metformin Assessment and Plan 1. Hyperlipidemia The patient is recommended to pursue dietary modifications and consider the herbal supplement [place] Bergam[place] to help manage cholesterol levels. Lipid panels will be revisited in three months to evaluate progress. 2. Prediabetes With an increase in A1c to 6.1%, Metformin ER 500 mg daily is suggested to support weight loss and glycemic control. Follow-up will include repeat A1c, glucose, kidney, and liver function tests in three months. 3. Asthma The patient has been prescribed Fluticasone-Salmeterol inhalation with instructions and will follow up on treatment efficacy. Her use of Albuterol inhaler indicates need for this intervention. 4. Emotional Eating Acknowledging a link between stress and eating patterns, the patient is encouraged toward dietary regulation and stress management, with Metformin as a supportive tool in managing weight and glucose levels. Repeat labs in 3 months, telehealth fu at that time. Telehealth Attestation The above information accurately represents the details discussed during a telehealth consultation conducted via remote communication. The patient has been explained that this is an interactive (audio/video) telehealth encounter and what that consists of. The patient understands and wishes to proceed. [employer] platform was used. Total time spent caring for the patient today was 31 minutes. This includes time spent before the visit reviewing the chart, time spent during the visit, and time spent after the visit on documentation, reviewing laboratory results, diagnostic imaging, medications, performing a medically necessary evaluation, counseling on diagnoses, care coordination, ordering appropriate tests, ordering appropriate medications, review of tests performed by other providers, reporting test results with the patient, communication with other healthcare providers. Results 12/2024: Laboratory Result Units Range Interpretation Provider Comments Sodium Level 141 mmol/L (135-145) Potassium Level 4.3 mmol/L (3.3-5.1) Chloride Level 105 mmol/L (96-108) Carbon Dioxide Level 28 mmol/L (22-29) Anion Gap 12 (12-20) Blood Urea Nitrogen 20 mg/dL (9-16) High Creatinine 0.71 mg/dL (0.5-1.4) Estimated Creatinine Clearance Calc Not Reportable Estimat Glomerular Filtration Rate > 60 Fasting Glucose 107 mg/dL (60-99) High Estimated Average Glucose 128 mg/dL Hemoglobin A1c Percent 6.1 % (<6.0) High Calcium Level 9.3 mg/dL (8.4-10.2) Delta Total Bilirubin 0.3 mg/dL (0.0-1.0) Aspartate Amino Transf (AST/SGOT) 25 U/L (5-31) Alanine Aminotransferase (ALT/SGPT) 28 U/L (0-31) Alkaline Phosphatase 76 U/L (39-117) Total Protein 7.5 g/dL (6.5-8.0) Albumin 4.4 g/dL (3.5-5.0) Triglycerides Level 67 mg/dL (<150) Cholesterol Level 243 mg/dL (<200) High LDL Cholesterol, Calculated 158 mg/dL (<100) High HDL Cholesterol 72 mg/dL (>40) [facility] Medical History Achilles tendinitis of right lower extremity Asthma [place] of toe Impetigo Migraine with aura Skin lesion Surgical History History of bilateral breast reduction surgery History of colonoscopy (~2022) Hx of abdominoplasty Hx of section Family History Father COPD (chronic obstructive pulmonary disease) Alcohol abuse Mother Diabetes Asthma Brother Substance use disorder Cardiomyopathy Alcohol abuse Son In good health Sister In good health Sister In good health Sister In good health Social History Housing: House Alcohol intake: never Patient Tobacco Use Status: Former Tobacco user e-Cigarette/Vaping Use: Never Used Second Hand Smoke Exposure: No service: No Current occupational status: employed 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 1. Little interest or pleasure in doing things: not at all 2. Feeling down, depressed, or hopeless: not at all 3. Trouble falling or staying asleep, or sleeping too much: not at all 4. Feeling tired or having little energy: not at all 5. Poor appetite or overeating: not at all 6. Feeling bad about yourself - or that you are a failure or have let yourself or your family down: not at all 7. Trouble concentrating on things, such as reading the newspaper or watching television: not at all 8. Moving or speaking so slowly that other people could have noticed. Or the opposite - being so fidgety or restless that you have been moving around a lot more than usual: not at all 9. Thoughts that you would be better off or of hurting yourself in some way: not at all Total score: 0 Depression Screening Interpretation: Negative Depression Screening Done: Yes 40104 - PHQ-9 Billing: Yes Source: Developed by Drs. Rey Andrews, Lauren Hurd, Jonathon Romano and colleagues, with an educational katie from [employer]. Thrive Questionnaire Date Thrive assessed: 01/13/25 I am a: Patient What is your living situation today?: I have a steady place to live Within the past 12 months, did the food you bought not last and you didn't have the money to get more?: Never true Within the past 12 months, did you worry whether your food would run out before you got money to buy more?: Never true Do you have trouble paying for medicines?: No Do you have trouble getting transportation to medical appointments?: No Do you have trouble paying your heating and electricity bill?: No Do you have trouble taking care of your child, family member or friend?: No Do you have trouble with day-to-day activities such as bathing, preparing meals, shopping, managing finances, etc.?: No Are you currently unemployed and looking for a job?: No Are you interested in more education?: No Please select the resources that you would like help with: None Currently or been in a relationship where the following occur: No concerns reported THRIVE Score: 0 AUDIT C Alcohol Use Questionnaire (AUDIT-C) 1. How often do you have a drink containing alcohol?: Never 3. How often do you have six or more drinks on one occasion?: Never Total Score: 0 Score Reviewed/Action Taken: Yes BRENNEN-7 AMB Questionnaire BRENNEN-7 Date BRENNEN - 7 assessed: 01/13/25 Feeling nervous, anxious, or on edge: 0 = Not at all Not being able to stop or control worryin = Not at all Worrying too much about different things: 0 = Not at all Trouble relaxin = Not at all Being so restless that it is hard to sit still: 0 = Not at all Becoming easily annoyed or irritable: 0 = Not at all Feeling afraid as if something awful might happen: 0 = Not at all Total BRENNEN-7 score (0-4 normal; 5-9 mild; 10-14 moderate; 15-21 severe): 0 Source: Developed by Drs. Rey Andrews, Lauren Hurd, Jonathon Romano and colleagues, with an educational katie from [employer]. BRENNEN-7 Assessment Billing BRENNEN-7 Assessment Tool: BRENNEN-7 Assessment 32651 ACT Questionnaire In the past 4 weeks, how much of the time did your asthma keep you from getting as much done at work, school or at home?: Some of the time During the past 4 weeks, how often have you had shortness of breath?: 1-2 times a week During the past 4 weeks, how often did your asthma symptoms wake you up at night or earlier than usual in the morning?: Once a week During the past 4 weeks, how often have you had to use your rescue inhaler or nebulizer medication?: 2-3 times a week How would you rate your asthma control during the past 4 weeks?: Somewhat controlled ACT Interpretation: Positive ACT Branch: New medication Score: 16 Physical exam (Primary Care) BMI result Body Mass Index 36.4 BMI Assessment/Plan discussion: High BMI High, discussed plan: lifestyle Tobacco/Smoking Status: Tobacco use Status Tobacco use date assessed 04/09/24 01/13/25 09:17 Patient Tobacco Use Status Former Tobacco user 01/13/25 09:17 e-Cigarette/Vaping Use Never Used 01/13/25 09:17 Depression Screening Interpretation: Negative Thrive Assessment: Date of Thrive Assessment Date Thrive assessed 08/02/23 01/13/25 09:17 Currently or been in a relationship where the following occur: No concerns reported Office Procedures Office Procedure Misc Details: G0449 15 MINUTE OBESITY EDUCATION Office Procedure Billing Code: AMB Procedure Billing Code (G0449 15 MINUTE OBESITY EDUCATION) Telehealth Telehealth Telehealth Platform: [facility] Location of provider rendering services: practice address Location of patient: address on file Patient Identification confirmed using: Name, : Yes Telehealth method: voice only Patient verbally consented to treatment: Yes Patient verbally consented to billing insurance company: Yes Patient informed of any privacy concerns related to visit: Yes Minutes spent on Phone/Video with Pt.: 14 Coding Level of Care Code Tele Est Pt Level 4 (00689) Complex EM visit Add On G2211 Diagnoses Mixed hyperlipidemia E78.2 Hyperlipidemia type: mixed hyperlipidemia IFG (impaired fasting glucose) R73.01 Severe obesity (BMI 35.0-35.9 with comorbidity) E66.01; Z68.35 Mild intermittent asthma in adult without complication J45.20 Migraine with aura and without status migrainosus, not intractable G43.109 Intractability: not intractable Status migrainosus presence: without status migrainosus CPT Codes Office Procedure - Office Procedure Billing Code: AMB Procedure Billing Code ([id number]) Additional Codes Asthma Control Questionnaire - ACT Interpretation: Positive ([id number]) PHQ-9 - 32016 - PHQ-9 Billing: Yes ([id number]) BRENNEN-7 Assessment Billing - BRENNEN-7 Assessment Tool: BRENNEN-7 Assessment 55167 ([id number]) Assessment & Plan Assessment & Plan (1) Hyperlipidemia: Code(s): E78.5 - Hyperlipidemia, unspecified Category: Medical Qualifiers: Hyperlipidemia type: mixed hyperlipidemia Qualified Code(s): E78.2 - Mixed hyperlipidemia (2) IFG (impaired fasting glucose): Code(s): R73.01 - Impaired fasting glucose Category: Medical (3) Severe obesity (BMI 35.0-35.9 with comorbidity): Comment: HLD and IFG Code(s): E66.01 - Morbid (severe) obesity due to excess calories; Z68.35 - Body mass index [BMI] 35.0-35.9, adult Category: Medical (4) Mild intermittent asthma in adult without complication: Code(s): J45.20 - Mild intermittent asthma, uncomplicated Category: Medical (5) Migraine with aura: Code(s): G43.109 - Migraine with aura, not intractable, without status migrainosus Category: Medical Qualifiers: Intractability: not intractable Status migrainosus presence: without status migrainosus Qualified Code(s): G43.109 - Migraine with aura, not intractable, without status migrainosus Plan . Orders: Orders Hemoglobin A1c 3 Months E78.2 - Mixed hyperlipidemia, R73.01 - Impaired fasting glucose Lipid Panel 3 Months E78.2 - Mixed hyperlipidemia, R73.01 - Impaired fasting glucose Comprehensive Met. Panel 3 Months E78.2 - Mixed hyperlipidemia, R73.01 - Impaired fasting glucose Medications: New tfuktsjmji-rcfrkcavgyhvy-bjta 50-300-40 mg 1 cap PO Q8H PRN 30 caps 0RF For migraine metformin ER 500 mg PO DAILY 90 tabs 1RF fluticasone propion-salmeterol 113-14 mcg/actuation 1 inh inhalation BID 1 ea 12RF Refilled albuterol sulfate 90 mcg/actuation 1 puff inhalation QID PRN 8.5 ea 7RF for wheezing
[2025-01-13 09:20] VITALS: BMI 36.4
--- OUTSIDE RECORDS SUMMARY | 2025-01-13 09:45 | XMS_ITS ---
Author Organization [facility] [place] Address [address] [place] [address] Care Team Providers Care Gluing Crew Leader Name Role Phone Mariana Zarco Primary Care Provider Jennifer Hawkins Unavailable [phone] Allergies No Known Allergies REASON FOR VISIT [...] Problem Acquired hammer toe of left foot ([id number]) Other hammer toe(s) (acquired), left foot (M20.42) Active confirmed Problem Localized, primary osteoarthritis of the ankle and/or foot (591714465) Arthritis of joint of lesser toe, left (M19.072) Active confirmed Vital Signs Height 5ft 2in in 11/22/2023 Weight 170 lbs 11/22/2023 BMI 31.09 kg/m2 11/22/2023 Blood pressure systolic 120 mm Hg 11/22/19 24 Blood pressure diastolic 70 mm Hg 024 Hc Percentile / % 11/22/2023 Encounters Encounter Location Date Provider Diagnosis [facility] [address] [place] [address] 11/22/2023 Jennifer Layton Pain in left toe(s) [...] * Mannie RIOSOB:1970 ([age] yo F)Acc No.[id number]:11/22/2023 Progress Notes Patient:?Caro Rios Provider:?Jennifer Layton DPM :1970???Age:53 Y???Sex:Female D ate:11/22/2023 Address:[address] [place], [place] [id number] Pcp:Mariana Zarco Subjective: * Chief Complaints: * [...] strength training. ?Marital status: . 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 * Medications:?TakingCalcium M agnesium Vitamin [...] Uncertain (4)? Plan: * Treatment: * Procedure Codes:?69521 X-RAY EXAM OF LEFT FOOT 3V, Modifiers: [...] Layton DPM Date:?04/2024 Generated for Rashawn sousa/Nasreen/eTransmitting on:?01/13/2025 09:45 AM EDT History and Physical Notes * [...]
--- OUTSIDE RECORDS SUMMARY | 2025-01-13 09:45 | XMS_ITS | Patient Health Record ---
Author Organization [facility] Address [address] [place] [address] Care Team Providers Care Transport Corps Officer Name Role Phone Mariana Zarco Primary Care Provider Jennifer Hawkins Unavailable [phone] Allergies No Known Allergies Reason For Referral [...] Problem Acquired hammer toe of left foot ([id number]) Other hammer toe(s) (acquired), left foot (M20.42) Active confirmed Problem Localized, primary osteoarthritis of the ankle and/or foot (508087572) Arthritis of joint of lesser toe, left (M19.072) Active confirmed Plan Of Treatment Pending Test Test Name Order Date X ray : Foot, left 3V 11/22/2023 Insurance Providers Payer Name Payer Address Payer Phone Subscriber Number Group Number Insured Name Patient Relationship to Insured Coverage Start Date Coverage End Date [facility] [address] [place] [address] [phone] [id number] Augustin Rios Spouse - patient is the spouse of the insured Medical (General) History Medical History History ICD Code Back,Hip,and Knee pain covid-19 Headaches/Migraines Osteoporosis Psoriasis/eczema Chicken pox Compress Fracture Surgical History Surgery Date(Month/Year) 10/26/1998 breast reduction 07/2013 Sherita martinez 07/2013
--- OUTSIDE RECORDS SUMMARY | 2025-01-13 09:45 | XMS_ITS ---
Author Organization [facility] Address [address] [place] [address] Care Team Providers Care Glass Technician Name Role Phone Mariana Zarco Primary Care Provider Jennifer Hawkins [phone] REASON FOR VISIT buy narrow gel tube Encounters Encounter Location Date Provider Diagnosis [facility] [address] [place] [address] 11/22/2023 Jennifer Layton Plan Of Treatment No Information Progress Notes * Mannie RIOSOB:1970 (7 1 yo F)Acc No.[id number]:11/22/2023 Patient:?Caro Rios :1970???Age:53 Y???Sex:Female Address:[address] [place] [address], [address] * true * Date:? Generated for Printi ng/Fatyroneg/eTransmitting on:?01/13/2025 09:45 AM EDT
== END 2025-01-13 17:05 | disposition home or self-care (01) ==
LOC: HO.HMCFM 09:14
PROVIDERS: PCP Nurse Practitioner Family; Visit Provider Nurse Practitioner Family
DX: E78.2 Mixed hyperlipidemia (principal); R73.01 Impaired fasting glucose; E66.01 Morbid (severe) obesity due to excess calories; Z68.35 Body mass index [BMI] 35.0-35.9, adult; J45.20 Mild intermittent asthma, uncomplicated; G43.109 Migraine with aura, not intractable, without status migrainosus

== ENCOUNTER → 2025-01-13 09:14 | Outpatient (BNVA) | payer OTHER, SELFPAY | PROVIDERS: PCP Nurse Practitioner Family; Visit Provider Nurse Practitioner Family | DX: E78.2 Mixed hyperlipidemia (principal); R73.03 Prediabetes; Z72.4 Inappropriate diet and eating habits; R73.01 Impaired fasting glucose; E66.01 Morbid (severe) obesity due to excess calories; J45.20 Mild intermittent asthma, uncomplicated; G43.109 Migraine with aura, not intractable, without status migrainosus; Z68.35 Body mass index [BMI] 35.0-35.9, adult | CPT/HCPCS: 96127; 96160 ==

== ENCOUNTER 2025-02-16 08:03 | Outpatient (AMB) | payer OTHER, SELFPAY ==
[2025-02-16 08:06] VITALS: BP 122/86; PULSE 88; TEMP 36.6; O2SAT 97; BMI 37.2
--- NOTE | 2025-02-16 08:06 | AM.OFFWIN_ITS ---
Intake Vital Signs 02/16/25 08:06 Height 5 ft 2 in Weight 203 lb 4 oz BMI 37.2 BP 122/86 Blood Pressure Location Lt brachial Position Sitting Pulse 88 Pulse Source Pulse Oximeter Temp 97.8 F Temp Source Oral Pulse Oximetry (%) 97 Oxygen Delivery Method Room Air Intake Visit Reasons: EP cold, congestion, cough Intake Note: Pt presents to the office today for c/o cough,chest congestion x10 days. Patient Tobacco Use Status: Former Tobacco user Allergies No Known Allergies Allergy (Verified 02/16/25 08:09) HPI HPI Comments History of Present Illness Details History - The patient is a 54-year-old female pr esenting with persistent cough and chest congestion that has lasted for approximately 10 days. Initially beginning with head congestion, the symptoms have since progressed to involve the chest. Typically, colds in this patient resolve within one to two days. The patient also reports occasional shortness of breath during exertion, but no continuous wheezing or fever has been noted. There is no ear pain, sinus pain, or significant fatigue. The patient has a known history of asthma, managed with a daily inhaler and a recently added maintenance inhaler, with lesser use of a rescue inhaler. Sleep is reported to be better with night-time medication, but relief during the day with qzia-pjd-fmnxkki treatments remains unclear. No other household members are currently ill. Physical Exam General: Cooperative, healthy appearing, comfortable and no acute distress Orientation/consciousness: Patient oriented x3 Limitations: No limitations Head: Normal to inspection Ears: Hearing grossly normal bilaterally, external ears normal and TM's normal bilaterally Nose: Normal external nose present, Normal nares present and No nasal discharge present Face and sinus: Normal facial exam and Yes sinuses nontender Mouth: Normal oral and palatal mucosa present and moist mucous membranes Throat: Yes tonsils normal, Yes uvula midline. Posterior oropharynx erythema Eyes: Appearance normal, both eyes and all related structures Neck: Normal visual inspection Respiratory: Clear to auscultation bilaterally. Normal respiratory effort, able to speak in complete sentences, not actively coughing, no respiratory distress, not tachypneic, no tripod positioning and no use of accessory muscles Cardiovascular: Regular rate and rhythm. Normal S1 and S2 Skin: No rashes or lesions noted Neuro: Patient oriented x3 Extremities: Normal to inspection and Yes no clubbing, cyanosis or edema [facility] Medical History Skin lesion Achilles tendinitis of right lower extremity [place] of toe Impetigo Migraine with aura Asthma Surgical History History of colonoscopy (~2022) Hx of section Hx of abdominoplasty History of bilateral breast reduction surgery Family History Father COPD (chronic obstructive pulmonary disease) Alcohol abuse Mother Diabetes Asthma Brother Substance use disorder Cardiomyopathy Alcohol abuse Son In good health Sister In good health Sister In good health Sister In good health Social History Housing: House Alcohol intake: never Patient Tobacco Use Status: Former Tobacco user e-Cigarette/Vaping Use: Never Used Second Hand Smoke Exposure: No service: No Current occupational status: employed 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, 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 Current occupational exposures/hazards: No Sexual orientation: Straight/Heterosexual Gender identity: Female Cognitive needs: No Hearing needs: No Vision needs: Yes (glasses) Review of Systems Const All systems reviewed & are unremarkable except as noted in HPI and below Physical Exam Vital Signs: Last Vital Signs Temp 97.8 F 02/16/25 08:06 Pulse 88 02/16/25 08:06 BP 122/86 02/16/25 08:06 Pulse Ox 97 02/16/25 08:06 Oxygen Delivery Method Room Air 02/16/25 08:06 BMI result Body Mass Index 37.2 Assessment & Plan Assessment & Plan (1) URI, acute: Code(s): J06.9 - Acute upper respiratory infection, unspecified Plan: VSS, pt well appearing and PE unremarkable. I have prescribed azithromycin (Z- Claudio) for the prolonged suspected upper respiratory infection, which will help address any bacterial component and provide anti-inflammatory effects. An allergy medication is advised daily to manage suspected allergic rhinitis, in light of prevalent allergens this year. Her asthma management is stable with her current inhaler regimen, and given reduced use of her rescue inhaler, no changes were made. A work note for tomorrow was provided. Prescriptions are sent to [facility] on [address] Patient was informed and verbally consented to the use of an ambient scribe for clinic note documentation during this visit Medications: New azithromycin For 250 mg dose pack: take 500 mg today (day 1), then 250 mg for 4 days (days 2-5) PO 6 tabs 0RF Coding Level of Care Code Est Pt Level 3 (44870) Diagnoses URI, acute J06.9
--- OUTSIDE RECORDS SUMMARY | 2025-02-16 08:07 | XMS_ITS | Patient Health Record ---
Author Organization [facility] Address [address] [place] [address] Care Team Providers Care Manager Shift Name Role Phone Mariana Zarco Primary Care Provider Jennifer Hawkins Unavailable [phone] Allergies No Known Allergies Reason For Referral [...] Problem Acquired hammer toe of left foot ([id number] 103) Other hammer toe(s) (acquired), left foot (M20.42) Active confirmed Problem Arthritis of joint of lesser toe, left (M19.072) Active confirmed Plan Of Treatment Pending Test Test Name Order Date X ray : Foot, left 3V 11/22/2023 Insurance Providers Payer Name Payer Address Payer Phone Subscriber Number Group Number Insured Name Patient Relationship to Insured Coverage Start Date Coverage End Date [facility] [address] [place] [address] [id number] Augustin Rios Spouse - patient is the spouse of the insured Medical (General) History Medical History History ICD Code Back,Hip,and Knee pain covid-19 Headaches/Migraines Osteoporosis Psoriasis/eczema Chicken pox Compress Fracture Surgical History Surgery Date(Month/Year) 10/26/1998 breast reduction 07/2013 Sherita martinez 07/2013
== END 2025-02-16 08:25 | disposition home or self-care (01) ==
PROVIDERS: PCP Nurse Practitioner Family; Visit Provider Physician Assistant
DX: J06.9 Acute upper respiratory infection, unspecified (principal)

== ENCOUNTER → 2025-02-16 08:03 | Outpatient (BNVA) | payer OTHER, SELFPAY | PROVIDERS: PCP Nurse Practitioner Family; Visit Provider Physician Assistant | DX: Z13.89 Encounter for screening for other disorder (principal) ==

== ENCOUNTER 2025-02-24 11:19 | Outpatient (AMB) | payer OTHER, SELFPAY ==
--- NOTE | 2025-02-24 11:27 | MHC.OFFVIS ---
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/DO NOT RS Human Resources Manager Required: No Fountain Vending Mechanic: Fountain Vending Mechanic Present (Amisha) Allergies No Known Allergies Allergy (Verified 02/24/25 11:32) Medication List - Last Reconciled 02/24/25 by Loraine Mckee LPN albuterol sulfate 90 mcg/actuation 1 puff inhalation QID PRN esahvgrplm-kzuwuenhmkfmc-wrfg 50-300-40 mg 1 cap PO Q8H PRN fluticasone propion-salmeterol 113-14 mcg/actuation 1 inh inhalation BID metformin ER 500 mg PO DAILY triamcinolone acetonide 0.5% 1 appl topical DAILY PRN Do you need a note to return to daycare/school/sports/work: No HPI Comments Details: She is a postmenopausal woman 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 She is doing well with no personnel coordinator concerns. Currently sexually active. Denies any vaginal dryness or irritation. STI testing offered; she declines. Attempting to eat a healthy diet with calcium and vitamin D and stays active with exercise. Last pap smear; 2022, negative. Last mammogram; 2023. ColoGard is UTD. Denies any family history of breast, ovarian or colon cancer. [facility] Medical History Prediabetes Skin lesion Achilles tendinitis of right lower extremity [place] of toe Impetigo Migraine with aura Asthma Surgical History History of colonoscopy (~2022) Hx of section Hx of abdominoplasty History of bilateral breast reduction surgery Family History Father COPD (chronic obstructive pulmonary disease) Alcohol abuse Mother Diabetes Asthma Brother Substance use disorder Cardiomyopathy Alcohol abuse Son In good health Sister In good health Sister In good health Sister In good health Social History Housing: House Alcohol intake: never Patient Tobacco Use Status: Former Tobacco user e-Cigarette/Vaping Use: Never Used Second Hand Smoke Exposure: No service: No Current occupational status: employed 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, 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 Current occupational exposures/hazards: No Sexual orientation: Straight/Heterosexual Gender identity: Female Cognitive needs: No Hearing needs: No Vision needs: Yes (glasses) Female Reproductive History Menstrual Age of Menarche: 13 Menopause type: natural Date of menopause: 02/24/18 Age of menopause: 47 Total pregnancies: 1 Full term: 1 Number of Living Children: 1 Date of last pap smear: 07/16/23 History of STI: No Date of Mammogram: 06/12/24 Review of Systems Const All systems reviewed & are unremarkable except as noted in HPI and below Reports as per HPI Eyes Reports no additional complaints ENT Reports no additional complaints Card Reports no additional complaints Resp Reports no additional complaints GI Reports as per HPI and Reports no additional complaints Reports as per HPI Musc Reports no additional complaints Skin/Breast Reports as per HPI Neuro Reports no additional complaints Psych Reports no additional complaints Endo Reports no additional complaints Jamison/Lymph Reports no additional complaints Aller/Immun Reports no additional complaints Physical Exam Vital Signs: Last Vital Signs BP 106/72 02/24/25 11:29 BMI result Body Mass Index 37.3 Const General: cooperative, healthy appearing, no acute distress, well developed and alert Orientation/consciousness: patient oriented x3 HEENT Head: Yes normal to inspection Eyes General: appearance normal, both eyes and all related structures Neck Neck: Yes normal visual inspection Thyroid: Thyroid normal Chest Other: bilateral breast reduction scarring Chest palpation & inspection: normal inspection of the chest and other (no puckering, dimpling, peau de orange, retraction, discharge, masses) Breast/axilla inspection: normal inspection of the breasts Breast/axilla palpation: normal palpation of the breasts Resp Effort & Inspection: normal respiratory effort GI Inspection: Yes normal to inspection Palpation (GI): Soft to palpation Rectal Exam - Female: deferred General: Yes bladder normal to palpation External Female Exam: normal external appearance and normal appearance of the urethra Speculum Exam - Vagina: normal appearance of the vagina, normal palpation and normal vaginal discharge Speculum Exam - Cervix: normal appearance of the cervix and normal palpation Bimanual exam- vagina & uterus: normal bimanual exam, normal palpation, uterine size normal, bladder normal to palpation, normal palpation and non-tender Bimanual Exam- Adnexa, other: no masses Skin General skin exam: no rashes or lesions noted Rashes: no rashes Neuro General: patient oriented x3 Cognition (Neuro): normal cognition Extrem General: Yes normal to inspection Psych Attitude: cooperative Thought process: Normal thought process present Assessment & Plan Assessment & Plan (1) Encounter for well woman exam with routine gynecological exam: Code(s): Z01.419 - Encounter for gynecological examination (general) (routine) without abnormal findings Category: Medical Plan Discussed: Current recommendations for pap smears per ASCCP guidelines. Breast awareness, periodic self breast exams and yearly mammogram. Maintain a healthy lifestyle, well balanced diet including Calcium 1,200 mg and Vitamin D 600 IU daily, and routine exercise. Contact the office with any postmenopausal bleeding. Patient verbalizes understanding and agrees to the plan of care. She was given opportunity to ask questions and all questions were answered to the best of my ability. RTO in 1 year for annual personnel coordinator exam. This note is constructed using voice recognition software. While every effort has been made to ensure accuracy, freight rate clerk errors may have been included. Orders: Orders MM tomosynthesis screening BI Today Z12.31 - Encounter for screening mammogram for malignant neoplasm of breast Coding Level of Care Code Est Pt Prev Care 40-64y(05777) Diagnoses Encounter for well woman exam with routine gynecological exam Z01.419
[2025-02-24 11:29] VITALS: BP 106/72; BMI 37.3
--- OUTSIDE RECORDS SUMMARY | 2025-02-24 12:59 | XMS_ITS | Patient Health Record ---
Author Organization [facility] Address [address] [place] [address] Care Team Providers Care Manager Cleaning Name Role Phone Mariana Zarco Primary Care Provider Jennifer Hawkins Unavailable [phone] Allergies No Known Allergies Reason For Referral [...] Problem Acquired hammer toe of left foot ([id number] 103) Other hammer toe(s) (acquired), left foot (M20.42) Active confirmed Problem Arthritis of joint of lesser toe, left (M19.072) Active confirmed Plan Of Treatment Pending Test Test Name Order Date X ray : Foot, left 3V 11/22/2023 Insurance Providers Payer Name Payer Address Payer Phone Subscriber Number Group Number Insured Name Patient Relationship to Insured Coverage Start Date Coverage End Date [facility] [address] [place] [address] [id number] Augustin Rios Spouse - patient is the spouse of the insured Medical (General) History Medical History History ICD Code Back,Hip,and Knee pain covid-19 Headaches/Migraines Osteoporosis Psoriasis/eczema Chicken pox Compress Fracture Surgical History Surgery Date(Month/Year) 10/26/1998 breast reduction 07/2013 Sherita martinez 07/2013
== END 2025-02-24 11:56 | disposition home or self-care (01) ==
LOC: HO.HWS 11:20
PROVIDERS: PCP Nurse Practitioner Family; Visit Provider Advanced Practice Midwife
DX: Z01.419 Encounter for gynecological examination (general) (routine) without abnormal findings (principal)
CPT/HCPCS: 99396; 99459

== ENCOUNTER 2025-04-16 06:20 | Outpatient (REF) | payer OTHER, SELFPAY ==
[2025-04-16 11:52] LABS: Alanine Aminotransferase 23 U/L (0-31); Albumin Level 4.2 g/dL (3.5-5.0); Alkaline Phosphatase 75 U/L (39-117); Anion Gap 10 (12-20); Aspartate Amino Transferase 24 U/L (5-31); Blood Urea Nitrogen 19 mg/dL (9-16); Calcium 9.1 mg/dL (8.4-10.2); Carbon Dioxide 29 mmol/L (22-29); Chloride 105 mmol/L (96-108); Cholesterol 217 mg/dL (<200); Estimated Glomerular Filt Rate > 60; HDL Cholesterol 59 mg/dL (>40); Potassium 4.0 mmol/L (3.3-5.1); Sodium 140 mmol/L (135-145); Total Protein 7.3 g/dL (6.5-8.0); Triglycerides 131 mg/dL (<150)
[2025-04-16 12:37] LABS: Hemoglobin A1C 159.1882 umol/L; Total Hemoglobin (HGBA1C) 3524.1302 umol/L
== END 2025-04-16 06:21 | disposition home or self-care (01) ==
LOC: HO.HMGCLDS 06:20
PROVIDERS: PCP Nurse Practitioner Family; Visit Provider Nurse Practitioner Family
DX: E78.2 Mixed hyperlipidemia (principal); R73.01 Impaired fasting glucose
CPT/HCPCS: 36415; 80053; 80061; 83036

== ENCOUNTER 2025-04-20 15:38 | Outpatient (AMB) | payer OTHER, SELFPAY ==
--- NOTE | 2025-04-20 15:34 | MHC.PC.OV ---
Vital Signs 04/20/25 16:13 Height 5 ft 2 in Weight 202 lb BMI 36.9 Intake Visit Reasons: fu lipids,ifg metformin and citrus bergamot start Intake Note: Telehealth follow up on med start Advertising Solicitor Required: No Allergies No Known Allergies Allergy (Verified 04/20/25 15:40) Medication List - Last Reviewed 04/20/25 by Karthikeyan Cevallos [place] albuterol sulfate 90 mcg/actuation 1 puff inhalation QID PRN ajpdnpjfdh-hesxuzpogpzqo-gvhc 50-300-40 mg 1 cap PO Q8H PRN fluticasone propion-salmeterol 113-14 mcg/actuation 1 inh inhalation BID metformin ER 500 mg PO DAILY triamcinolone acetonide 0.5% 1 appl topical DAILY PRN Tobacco use date assessed: 04/20/25 Dental Screening Dental Screen Date: 04/20/25 Did you have a dental visit in the last 12 months?: Yes Did you have a dental problem in the last 6 months where you did not have access to dental care?: No Was dental information given to patient?: Patient has dentist HPI HPI Comments History of Present Illness Details 54-year-old female with osteopenia, migraine, asthma, compression fracture L1 vertebrae, impaired fasting glucose, hyperlipidemia Status post , abdominoplasty, bilat breast reduction surgery Health Maintenance: ? Colon Cologuard 07/05/2023 negative ? Mammo 06/12/24 ? DEXA 03/05/2023 ? PAP 07/16/2023 ? Tdap 2023, Flu declined Specialists: Podiatry [facility] Dermatology History of Present Illness - The patient is a 54-year-old female presenting for chronic disease management - Monitored A1c levels rising from 5.9% to 6.3% despite Metformin 500 mg once daily. Tolerating w/o side effects - Reports challenges with emotional eating and weight management; weighed 199 lbs previously. Stable w/in a few lbs - Improved cholesterol levels with Abingdon Bergamot !! - Increased use of rescue inhaler due to difficulties obtaining regular inhaler; asthma symptoms persist. When using the fluticasone-salmeterol sx are well controlled w/ infrequent use of GEOVANNY Review of Systems - Endocrine: Reports difficulties in managing blood glucose; weight management issues. - Cardiovascular: Reports controlled cholesterol levels with Abingdon Bergamot. - Respiratory: Reports adequate asthma control with inhaler, increased use of rescue inhaler. Results - Labs: Hemoglobin A1c levels increasing from 5.9% to 6.3%. - Tests and Diagnostics: Cholesterol levels improved with Abingdon Bergamot. Assessment and Plan 1. IFG - Increase Metformin to 1000 mg daily - Discussed medication effects and side effects. 2. Hyperlipidemia - Continue Abingdon Bergamot. - Monitor lipid levels. 3. Asthma - Attempt fulfillment through [employer] - Increase supply to a 90-day duration. - If not able, send message on portal , consider at that time [facility] or [facility] RTO 3 MONTHS FOR CPE WITH LABS 1 WEEK BEFORE, SOONER PRN Patient was given time to ask questions. All questions were answered to their satisfaction. Telehealth Attestation The visit was conducted via telehealth. I verify that the documentation accurately reflects the service provided. The patient has been explained that this is an interactive (audio/video) telehealth encounter and what that consists of. The patient understands and wishes to proceed. [employer] platform was used. Total time spent caring for the patient today was 15 minutes. This includes time spent before the visit reviewing the chart, time spent during the visit, and time spent after the visit on documentation, reviewing laboratory results, diagnostic imaging, medications, performing a medically necessary evaluation, counseling on diagnoses, care coordination, ordering appropriate tests, ordering appropriate medications, review of tests performed by other providers, reporting test results with the patient, communication with other healthcare providers. [facility] Medical History Prediabetes Skin lesion Achilles tendinitis of right lower extremity [place] of toe Impetigo Migraine with aura Asthma Surgical History History of colonoscopy (~2022) Hx of section Hx of abdominoplasty History of bilateral breast reduction surgery Family History Father COPD (chronic obstructive pulmonary disease) Alcohol abuse Mother Diabetes Asthma Brother Substance use disorder Cardiomyopathy Alcohol abuse Son In good health Sister In good health Sister In good health Sister In good health Social History Housing: House Alcohol intake: never Patient Tobacco Use Status: Former Tobacco user e-Cigarette/Vaping Use: Never Used Second Hand Smoke Exposure: No service: No Current occupational status: employed 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 Rey Andrews, Lauren Hurd, Jonathon Romano and colleagues, with an educational katie from [employer]. ACT Questionnaire In the past 4 weeks, how much of the time did your asthma keep you from getting as much done at work, school or at home?: None of the time During the past 4 weeks, how often have you had shortness of breath?: Not at all During the past 4 weeks, how often did your asthma symptoms wake you up at night or earlier than usual in the morning?: Not at all During the past 4 weeks, how often have you had to use your rescue inhaler or nebulizer medication?: Not at all How would you rate your asthma control during the past 4 weeks?: Completely controlled ACT Interpretation: Negative Score: 25 Physical exam (Primary Care) Tobacco/Smoking Status: Tobacco use Status Tobacco use date assessed 01/13/25 04/20/25 15:34 Patient Tobacco Use Status Former Tobacco user 04/20/25 15:34 e-Cigarette/Vaping Use Never Used 04/20/25 15:34 Thrive Assessment: Date of Thrive Assessment Date Thrive assessed 01/13/25 04/20/25 15:34 Telehealth Telehealth Telehealth Platform: [facility] Location of provider rendering services: practice address Location of patient: address on file Patient Identification confirmed using: Name, : Yes Telehealth method: voice only Patient verbally consented to treatment: Yes Patient verbally consented to billing insurance company: Yes Patient informed of any privacy concerns related to visit: Yes Results Reviewed Results Reviewed: Results 12/2024: Laboratory Result Units Range Interpretation Provider Comments Sodium Level 141 mmol/L (135-145) Potassium Level 4.3 mmol/L (3.3-5.1) Chloride Level 105 mmol/L (96-108) Carbon Dioxide Level 28 mmol/L (22-29) Anion Gap 12 (12-20) Blood Urea Nitrogen 20 mg/dL (9-16) High Creatinine 0.71 mg/dL (0.5-1.4) Estimated Creatinine Clearance Calc Not Reportable Estimat Glomerular Filtration Rate > 60 Fasting Glucose 107 mg/dL (60-99) High Estimated Average Glucose 128 mg/dL Hemoglobin A1c Percent 6.1 % (<6.0) High Calcium Level 9.3 mg/dL (8.4-10.2) Delta Total Bilirubin 0.3 mg/dL (0.0-1.0) Aspartate Amino Transf (AST/SGOT) 25 U/L (5-31) Alanine Aminotransferase (ALT/SGPT) 28 U/L (0-31) Alkaline Phosphatase 76 U/L (39-117) Total Protein 7.5 g/dL (6.5-8.0) Albumin 4.4 g/dL (3.5-5.0) Triglycerides Level 67 mg/dL (<150) Cholesterol Level 243 mg/dL (<200) High LDL Cholesterol, Calculated 158 mg/dL (<100) High HDL Cholesterol 72 mg/dL (>40) 04/16/25 Laboratory Result Units Range Interpretation Provider Comments Estimated Average Glucose 134 mg/dL Hemoglobin A1c Percent 6.3 % (<6.0) High Laboratory Result Units Range Interpretation Provider Comments Sodium Level 140 mmol/L (135-145) Potassium Level 4.0 mmol/L (3.3-5.1) Chloride Level 105 mmol/L (96-108) Carbon Dioxide Level 29 mmol/L (22-29) Anion Gap 10 (12-20) Low Blood Urea Nitrogen 19 mg/dL (9-16) High Creatinine 0.66 mg/dL (0.5-1.4) Estimated Creatinine Clearance Calc Not Reportable Estimat Glomerular Filtration Rate > 60 Random Glucose 112 mg/dL (60-115) Calcium Level 9.1 mg/dL (8.4-10.2) Total Bilirubin 0.4 mg/dL (0.0-1.0) Aspartate Amino Transf (AST/SGOT) 24 U/L (5-31) Alanine Aminotransferase (ALT/SGPT) 23 U/L (0-31) Alkaline Phosphatase 75 U/L (39-117) Total Protein 7.3 g/dL (6.5-8.0) Albumin 4.2 g/dL (3.5-5.0) Triglycerides Level 131 mg/dL (<150) Cholesterol Level 217 mg/dL (<200) High LDL Cholesterol, Calculated 132 mg/dL (<100) High HDL Cholesterol 59 mg/dL (>40) Coding Level of Care Code Tele Est Pt Level 2 (02656) Complex EM visit Add On G2211 Diagnoses Mixed hyperlipidemia E78.2 Hyperlipidemia type: mixed hyperlipidemia IFG (impaired fasting glucose) R73.01 Mild intermittent asthma in adult without complication J45.20 Additional Codes Asthma Control Questionnaire - ACT Interpretation: Negative ([id number]) Assessment & Plan Assessment & Plan (1) Hyperlipidemia: Comment: DOING WELL ON CITRUS BERGAMOT, CONT. Code(s): E78.5 - Hyperlipidemia, unspecified Category: Medical Qualifiers: Hyperlipidemia type: mixed hyperlipidemia Qualified Code(s): E78.2 - Mixed hyperlipidemia (2) IFG (impaired fasting glucose): Comment: INCREASE METFORMIN TO 1000MG QD Code(s): R73.01 - Impaired fasting glucose Category: Medical (3) Mild intermittent asthma in adult without complication: Code(s): J45.20 - Mild intermittent asthma, uncomplicated Category: Medical Plan . Orders: Orders Lipid Panel 4 Months E78.2 - Mixed hyperlipidemia, R73.01 - Impaired fasting glucose Hemoglobin A1c 4 Months E78.2 - Mixed hyperlipidemia, R73.01 - Impaired fasting glucose Comprehensive Met. Panel 4 Months E78.2 - Mixed hyperlipidemia, R73.01 - Impaired fasting glucose Medications: Changed From metformin ER 500 mg PO DAILY 90 tabs 1RF To metformin ER 1,000 mg (2 x 500 mg) PO DAILY 180 tabs 1RF From fluticasone propion-salmeterol 113-14 mcg/actuation 1 inh inhalation BID 1 ea 12RF To fluticasone propion-salmeterol 113-14 mcg/actuation 1 inh inhalation BID 3 ea 2RF 90 days
--- OUTSIDE RECORDS SUMMARY | 2025-04-20 16:01 | XMS_ITS | Patient Health Record ---
Author Organization [facility] Address [address] [place] [address] Care Team Providers Care Editor Greeting Card Name Role Phone Mariana Zarco Primary Care Provider Jennifer Hawkins Unavailable [phone] Allergies No Known Allergies Reason For Referral [...] Problem Acquired hammer toe of left foot ([id number] 103) Other hammer toe(s) (acquired), left foot (M20.42) Active confirmed Problem Arthritis of joint of lesser toe, left (M19.072) Active confirmed Plan Of Treatment Pending Test Test Name Order Date X ray : Foot, left 3V 11/22/2023 Insurance Providers Payer Name Payer Address Payer Phone Subscriber Number Group Number Insured Name Patient Relationship to Insured Coverage Start Date Coverage End Date [facility] [address] [place] [address] [id number] Augustin Rios Spouse - patient is the spouse of the insured Medical (General) History Medical History History ICD Code Back,Hip,and Knee pain covid-19 Headaches/Migraines Osteoporosis Psoriasis/eczema Chicken pox Compress Fracture Surgical History Surgery Date(Month/Year) 10/26/1998 breast reduction 07/2013 Sherita martinez 07/2013
[2025-04-20 16:13] VITALS: BMI 36.9
== END 2025-04-20 16:25 | disposition home or self-care (01) ==
LOC: HO.HMCFM 15:38
PROVIDERS: PCP Nurse Practitioner Family; Visit Provider Nurse Practitioner Family
DX: E78.2 Mixed hyperlipidemia (principal); R73.01 Impaired fasting glucose; J45.20 Mild intermittent asthma, uncomplicated

== ENCOUNTER → 2025-04-20 15:38 | Outpatient (BNVA) | payer OTHER, SELFPAY | PROVIDERS: PCP Nurse Practitioner Family; Visit Provider Nurse Practitioner Family | DX: J45.20 Mild intermittent asthma, uncomplicated (principal); E78.2 Mixed hyperlipidemia; M85.80 Other specified disorders of bone density and structure, unspecified site; G43.909 Migraine, unspecified, not intractable, without status migrainosus; R73.01 Impaired fasting glucose; Z79.84 Long term (current) use of oral hypoglycemic drugs | CPT/HCPCS: 96160 ==

== ENCOUNTER → 2025-06-18 07:45 | Outpatient (BNV) | payer OTHER, SELFPAY | PROVIDERS: PCP Nurse Practitioner Family; Visit Provider Internal Medicine | DX: Z12.31 Encounter for screening mammogram for malignant neoplasm of breast (principal) | CPT/HCPCS: 77063; 77067 ==

== ENCOUNTER 2025-06-18 07:48 | Outpatient (REF) | payer OTHER, SELFPAY | END 2025-06-18 07:49 | disposition home or self-care (01) | LOC: HO.MAMMO 07:48 | PROVIDERS: PCP Nurse Practitioner Family; Visit Provider Advanced Practice Midwife | DX: Z12.31 Encounter for screening mammogram for malignant neoplasm of breast (principal) | CPT/HCPCS: 77063; 77067 ==

== ENCOUNTER 2025-08-10 15:49 | Outpatient (AMB) | payer OTHER, SELFPAY ==
[2025-08-10 16:07] VITALS: BP 112/78; PULSE 88; TEMP 36.4; O2SAT 97; BMI 39.0
--- NOTE | 2025-08-10 16:07 | MHC.OFFWIV ---
Intake Vital Signs 08/10/25 16:07 Height 5 ft 2 in Weight 213 lb BMI 39.0 BP 112/78 Blood Pressure Location Rt brachial Position Sitting Pulse 88 Pulse Source Pulse Oximeter Temp 97.5 F Temp Source Oral Pulse Oximetry (%) 97 Oxygen Delivery Method Room Air Intake Visit Reasons: ep sore congestion mild cough Intake Note: pt presents with chest congestion with dry coughing and sore throat x2 wks Patient Tobacco Use Status: Former Tobacco user Allergies No Known Allergies Allergy (Verified 08/10/25 16:14) Do you need a note to return to daycare/school/sports/work: No HPI HPI Comments History of Present Illness Details History - The patient is a 54-year-old individual presenting with symptoms of a persistent cold and sore throat. - The patient reports having a cold with a sore throat persisting for 2 weeks. - The patient's was diagnosed with pneumonia, raising concerns about the patient's own condition. - The patient denies fever but reports congestion and slight shortness of breath on exertion due to congestion. - The patient has a history of asthma and uses a maintenance inhaler and a rescue inhaler as needed, has used it a few times over the past 2 weeks but not constantly. - The patient has been using mqek-ren-xxzcgjz medications like NyQuil and DayQuil for a few days. - The patient reports tooth pain, possibly related to sinus congestion. FOR[facility]LY [facility], [facility] Medical History Prediabetes Skin lesion Achilles tendinitis of right lower extremity [place] of toe Impetigo Migraine with aura Asthma Surgical History History of colonoscopy (~2022) Hx of section Hx of abdominoplasty History of bilateral breast reduction surgery Family History Father COPD (chronic obstructive pulmonary disease) Alcohol abuse Mother Diabetes Asthma Brother Substance use disorder Cardiomyopathy Alcohol abuse Son In good health Sister In good health Sister In good health Sister In good health Social History Housing: House Alcohol intake: never Patient Tobacco Use Status: Former Tobacco user e-Cigarette/Vaping Use: Never Used Second Hand Smoke Exposure: No service: No Current occupational status: employed 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 Denies shortness of breath at rest. - ENT: Reports sore throat and tooth pain. Denies ear pain or sinus pain. - General: Denies fever. All systems reviewed and are unremarkable except as noted in HPI Physical Exam Exam Exam: Physical Exam General: Cooperative, healthy appearing, comfortable and no acute distress Orientation/consciousness: Patient oriented x3 Limitations: No limitations Head: Normal to inspection Ears: Hearing grossly normal bilaterally, external ears normal, EAC's normal bilaterally and TM's normal bilaterally Nose: Normal external nose present, Normal nares present and No nasal discharge present Face and sinus: Normal facial exam and sinuses nontender Mouth: Normal oral and palatal mucosa present and moist mucous membranes Throat: tonsils normal, no exudates, uvula midline, posterior oropharynx erythema Eyes: Appearance normal, both eyes and all related structures Neck: Normal visual inspection, full ROM Respiratory: Clear to auscultation bilaterally. Normal respiratory effort, able to speak in complete sentences, actively coughing, no respiratory distress, not tachypneic, no tripod positioning and no use of accessory muscles Cardiovascular: Regular rate and rhythm. Normal S1 and S2 Skin: No rashes or lesions noted Neuro: Patient oriented x3 Extremities: Normal to inspection and Yes no clubbing, cyanosis or edema Vital Signs: Last Vital Signs Temp 97.5 F 08/10/25 16:07 Pulse 88 08/10/25 16:07 BP 112/78 08/10/25 16:07 Pulse Ox 97 08/10/25 16:07 Oxygen Delivery Method Room Air 08/10/25 16:07 BMI result Body Mass Index 39.0 Results AMB Rapid Strep AMB Rapid Strep Negative Last Edit by Lalita Hooks CMA on 08/10/25 16:18 Assessment & Plan Assessment & Plan (1) URI, acute: Code(s): J06.9 - Acute upper respiratory infection, unspecified Plan: Patient was informed and verbally consented to the use of an ambient scribe for clinic note documentation during this visit. Viral Upper Respiratory Infection - VSS, pt well appearing and PE remarkable for posterior oropharynx erythema. - Continue using dxpp-pqd-jgrfieu medications such as NyQuil and DayQuil for symptom relief, but limit use to 5-7 days to avoid rebound congestion. - Consider using saline nasal spray or hypertonic saline to alleviate congestion. - Monitor symptoms and avoid contact with vulnerable populations while symptomatic. - Continue using maintenance inhaler and rescue inhaler as needed. - No additional asthma medications are deemed necessary at this time. - Consider using ibuprofen or numbing throat sprays for sore throat relief. Orders: Orders AMB Rapid Strep Screen Today Z13.9 - Encounter for screening, unspecified Coding Level of Care Code Est Pt Level 3 (42002) Diagnoses URI, acute J06.9
--- OUTSIDE RECORDS SUMMARY | 2025-08-10 19:19 | XMS_ITS | Patient Health Record ---
Author Organization [facility] Address [address] [place] [address] Care Team Providers Care Blow Down Helper Name Role Phone Mariana Zarco Primary Care Provider Jennifer Hawkins Unavailable [phone] Allergies No Known Allergies Reason For Referral [...] Problem Acquired hammer toe of left foot ([id number]) Other hammer toe(s) (acquired), left foot (M20.42) Active confirmed Problem Localized, primary osteoarthritis of the ankle and/or foot (317601689) Arthritis of joint of lesser toe, left (M19.072) Active confirmed Plan Of Treatment Pending Test Test Name Order Date X ray : Foot, left 3V 11/22/2023 Insurance Providers Payer Name Payer Address Payer Phone Subscriber Number Group Number Insured Name Patient Relationship to Insured Coverage Start Date Coverage End Date [facility] [address] [place] [address] [phone] [id number] Augustin Rios Spouse - patient is the spouse of the insured Medical (General) History Medical History History ICD Code Back,Hip,and Knee pain covid-19 Headaches/Migraines Osteoporosis Psoriasis/eczema Chicken pox Compress Fracture Surgical History Surgery Date(Month/Year) 10/26/1998 breast reduction 07/2013 Sherita martinez 07/2013
== END 2025-08-10 16:26 | disposition home or self-care (01) ==
PROVIDERS: PCP Nurse Practitioner Family; Visit Provider Physician Assistant
DX: J06.9 Acute upper respiratory infection, unspecified (principal); Z13.9 Encounter for screening, unspecified

== ENCOUNTER → 2025-08-10 15:49 | Outpatient (BNVA) | payer OTHER, SELFPAY | PROVIDERS: PCP Nurse Practitioner Family; Visit Provider Physician Assistant | DX: J06.9 Acute upper respiratory infection, unspecified (principal); J45.909 Unspecified asthma, uncomplicated; Z79.51 Long term (current) use of inhaled steroids | CPT/HCPCS: 87880 ==

== ENCOUNTER 2025-08-18 15:47 | Outpatient (AMB) | payer OTHER, SELFPAY ==
--- NOTE | 2025-08-18 16:04 | MHC.OFFWIV ---
Intake Vital Signs 08/18/25 16:05 Height 5 ft 2 in Weight 212 lb BMI 38.8 BP 116/88 Blood Pressure Location Lt brachial Position Sitting Pulse 85 Pulse Source Pulse Oximeter Temp 97.8 F Temp Source Oral Pulse Oximetry (%) 97 Oxygen Delivery Method Room Air Intake Visit Reasons: EP-sinus congestion, cough Intake Note: pt presents with worsening sinus and chest congestion with mostly dry coughing, lethargic Patient Tobacco Use Status: Former Tobacco user Allergies No Known Allergies Allergy (Verified 08/18/25 16:06) Do you need a note to return to daycare/school/sports/work: No HPI HPI Comments History of Present Illness Details History of Present Illness - The patient is a 54 year old individual presenting with worsening respiratory symptoms after a visit one week prior for the same illness. - The patient reports symptoms have progressively worsened with no period of improvement, and include increased fatigue, increased use of a rescue inhaler, and a more frequent cough. - The cough is described as mostly dry and tickly, and is non-productive of any green sputum. - The patient also reports some sinus pressure and facial congestion, but denies fever, ear pain, or postnasal drip. - During the last visit on the , a strep swab was negative. - The patient has been using saline nasal spray, but stopped using DayQuil and NyQuil after about a week. - The patient's recently had similar symptoms that progressed to pneumonia, for which he is being treated with a zpak and amoxicillin. - She denies fever, chills, CP, SOB, abd pain, n/v/d. - She denies recent travel. Physical Exam General: Cooperative, healthy appearing, comfortable, no acute distress and well developed Head: Normal to inspection Ears: Hearing grossly normal bilaterally. No tragus or mastoid tenderness noted. Auditory canals clear bilaterally. TM's normal, not bulging. No fluid noted. Nose: Normal external nose present. Moist mucosa. Turbinates normal bilaterally, not boggy. Face and sinus: Tenderness to palpation of the frontal and maxillary sinuses bilaterally. Neck: Normal visual inspection and Yes full ROM. No lymphadenopathy noted. Respiratory: Normal respiratory effort and able to speak in complete sentences. Clear to auscultation bilaterally Cardiovascular: Regular rate and rhythm. Normal S1 and S2 GI: Normal to inspection. Soft to palpation and nontender, nondistended. No guarding noted. Skin: No rashes or lesions noted [facility] Medical History Prediabetes Skin lesion Achilles tendinitis of right lower extremity [place] of toe Impetigo Migraine with aura Asthma Surgical History History of colonoscopy (~2022) Hx of section Hx of abdominoplasty History of bilateral breast reduction surgery Family History Father COPD (chronic obstructive pulmonary disease) Alcohol abuse Mother Diabetes Asthma Brother Substance use disorder Cardiomyopathy Alcohol abuse Son In good health Sister In good health Sister In good health Sister In good health Social History Housing: House Alcohol intake: never Patient Tobacco Use Status: Former Tobacco user e-Cigarette/Vaping Use: Never Used Second Hand Smoke Exposure: No service: No Current occupational status: employed 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, 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 Current occupational exposures/hazards: No Sexual orientation: Straight/Heterosexual Gender identity: Female Cognitive needs: No Hearing needs: No Vision needs: Yes (glasses) Female Reproductive History Menstrual Age of Menarche: 13 Date of menopause: 02/24/18 Review of Systems Const All systems reviewed & are unremarkable except as noted in HPI and below Physical Exam Vital Signs: Last Vital Signs Temp 97.8 F 08/18/25 16:05 Pulse 85 08/18/25 16:05 BP 116/88 08/18/25 16:05 Pulse Ox 97 08/18/25 16:05 Oxygen Delivery Method Room Air 08/18/25 16:05 BMI result Body Mass Index 38.8 Assessment & Plan Assessment & Plan (1) URI with cough and congestion: Code(s): J06.9 - Acute upper respiratory infection, unspecified Plan Most likely URI vs covid vs flu vs RSV vs viral illness vs CAP plan - will order a resp panel in the office - will also order an xray to r/o pneumonia - tylenol or motrin as needed for pain or fever - tessalon perles as needed for cough - zyrtec D daily and flonase - start the z-taj as directed - follow up with PCP - will call her with her results and can adjust her treatment as needed Orders: Orders XR chest 2V Today R05.9 - Cough, unspecified SARS-CoV2/FLU/RSV Today R09.89 - Other specified symptoms and signs involving the circulatory and respiratory systems Medications: New cetirizine-pseudoephedrine 5-120 mg ER 1 tab PO BID 14 tabs 0RF 7 days benzonatate 100 mg PO bid-tid PRN 21 caps 0RF Cough 7 days azithromycin For 250 mg dose pack: take 500 mg today (day 1), then 250 mg for 4 days (days 2-5) PO 6 tabs 0RF Coding Level of Care Code Est Pt Level 4 (83541) Diagnoses URI with cough and congestion J06.9
[2025-08-18 16:05] VITALS: BP 116/88; PULSE 85; TEMP 36.6; O2SAT 97; BMI 38.8
--- OUTSIDE RECORDS SUMMARY | 2025-08-18 18:41 | XMS_ITS | Patient Health Record ---
Author Organization [facility] Address [address] [place] [address] Care Team Providers Care Financial Controller Name Role Phone Mariana Zarco Primary Care Provider Jennifer Hawkins Unavailable [phone] Allergies No Known Allergies Reason For Referral [...] Problem Acquired hammer toe of left foot ([id number]) Other hammer toe(s) (acquired), left foot (M20.42) Active confirmed Problem Localized, primary osteoarthritis of the ankle and/or foot ([id number]) Arthritis of joint of lesser toe, left (M19.072) Active confirmed Plan Of Treatment Pending Test Test Name Order Date X ray : Foot, left 3V 11/22/2023 Insurance Providers Payer Name Payer Address Payer Phone Subscriber Number Group Number Insured Name Patient Relationship to Insured Coverage Start Date Coverage End Date [facility] [address] [place] [address] [phone] [id number] Augustin Rios Spouse - patient is the spouse of the insured Medical (General) History Medical History History ICD Code Back,Hip,and Knee pain covid-19 Headaches/Migraines Osteoporosis Psoriasis/eczema Chicken pox Compress Fracture Surgical History Surgery Date(Month/Year) 10/26/1998 breast reduction 07/2013 Sherita martinez 07/2013
== END 2025-08-18 16:27 | disposition home or self-care (01) ==
PROVIDERS: PCP Nurse Practitioner Family; Visit Provider Physician Assistant Medical
DX: J06.9 Acute upper respiratory infection, unspecified (principal)

== ENCOUNTER 2025-08-18 15:47 | Outpatient (REF) | payer OTHER, SELFPAY ==
[2025-08-19 13:12] LABS: Resp Syncy Virus RNA Qual PCR NEGATIVE (Negative); SARS COV2 PCR INHOUSE NEGATIVE (Negative)
== END 2025-08-18 15:48 | disposition home or self-care (01) ==
LOC: HO.LAB 15:47
PROVIDERS: PCP Nurse Practitioner Family; Visit Provider Physician Assistant Medical
DX: Z03.818 Encounter for observation for suspected exposure to other biological agents ruled out (principal)
CPT/HCPCS: 87637